=== PATIENT | female | born 1995 | race Caucasian/White ===

== ENCOUNTER 2019-03-12 08:40 | Emergency (ER) | payer SELFPAY ==
[~2019-03-12] VITALS: Ht 177.8 cm; Wt 96.4 kg
[2019-03-12 08:41] VITALS: BP 117/73
[2019-03-12] MEDS ORDERED: PRED20TA PO (09:02)
== END 2019-03-12 09:30 | disposition home or self-care (01) ==
LOC: M ED 08:40
DX: D18.09 Hemangioma of other sites (principal); F17.210 Nicotine dependence, cigarettes, uncomplicated

== ENCOUNTER 2019-04-26 15:17 | Emergency (ER) | payer MEDICAID, SELFPAY ==
[~2019-04-26] VITALS: Ht 177.8 cm; Wt 100.0 kg
[~2019-04-26 15:17] MED LIST: PRED20TA PO
[2019-04-26] MEDS ORDERED: FLUORESCEIN OPHTH 1 MG STRIP OU ONE (17:00)
[2019-04-26] MEDS ORDERED: TETRACAINE 0.5% OPHTH SOLN 4ML OU ONE (17:00)
[2019-04-26] MEDS ORDERED: PRED10TA2 PO (17:43)
[2019-04-26] MEDS ORDERED: predniSONE 20 MG TAB PO ONE (17:45)
[2019-04-26] MEDS ORDERED: PERC5TAB12 PO (17:56)
[2019-04-26 17:58] VITALS: BP 131/69
== END 2019-04-26 17:59 | disposition home or self-care (01) ==
LOC: M ED 15:17
DX: H57.12 Ocular pain, left eye (principal); D18.1 Lymphangioma, any site; F17.200 Nicotine dependence, unspecified, uncomplicated; Z86.69 Personal history of other diseases of the nervous system and sense organs

== ENCOUNTER 2019-05-05 12:41 | Emergency (ER) | payer MEDICAID, SELFPAY ==
[~2019-05-05] VITALS: Ht 177.8 cm; Wt 98.8 kg
[2019-05-05 12:41] VITALS: BP 140/86
[~2019-05-05 12:41] MED LIST changes: +PERC5TAB12 PO; +PRED10TA2 PO
[2019-05-05] MEDS ORDERED: IPRATROPIUM 0.5MG/ALBUTEROL 2.5MG INH SOL UD 3ML (DUONEB)(J7620) NEB ONE (13:15)
--- NOTE | 2019-05-05 13:39 | REP ---
Clinical: Productive cough . Comparison: None . Technique: PA and lateral. Findings: The mediastinum and cardiac silhouette are normal. The lung griffin are clear and without acute consolidation, effusion, or pneumothorax. The skeletal structures are intact and normal. Impression: 1. No acute cardiopulmonary process. Electronically Signed by Israel Ha MD 05/05/2019 01:30 P
[2019-05-05] MEDS ORDERED: MUCI600T31 PO (14:12)
[2019-05-05] MEDS ORDERED: AUGM875T28 PO (14:12)
[2019-05-05] MEDS ORDERED: PROAAER10 INH (14:12)
[2019-05-05] MEDS ORDERED: PRED20TA PO (14:12)
[2019-05-05] MEDS ORDERED: AUGMENTIN 875 MG TAB PO ONE (14:15)
== END 2019-05-05 14:18 | disposition home or self-care (01) ==
LOC: M ED 12:41
DX: J01.90 Acute sinusitis, unspecified (principal); J20.9 Acute bronchitis, unspecified

== ENCOUNTER 2019-05-16 13:04 | Emergency (ER) | payer MEDICAID ==
[~2019-05-16] VITALS: Ht 177.8 cm; Wt 103.2 kg
[~2019-05-16 13:04] MED LIST changes: +AUGM875T28 PO; +MUCI600T31 PO; +PROAAER10 INH
[2019-05-16] MEDS ORDERED: IBUPROFEN 800 MG TAB PO ONE (14:15)
[2019-05-16] MEDS ORDERED: ZITHTAB PO (14:44)
[2019-05-16] MEDS ORDERED: AZITHROMYCIN 250 MG TAB PO ONE (14:45)
[2019-05-16 14:48] VITALS: BP 130/73
[2019-05-16 15:09] LABS: INFLUENZA A AMPLIFICATION NEGATIVE (NEGATIVE); INFLUENZA B AMPLIFICATION NEGATIVE (NEGATIVE)
== END 2019-05-16 14:58 | disposition home or self-care (01) ==
LOC: M ED 13:04
DX: J01.90 Acute sinusitis, unspecified (principal); J20.9 Acute bronchitis, unspecified; F17.200 Nicotine dependence, unspecified, uncomplicated; Z79.899 Other long term (current) drug therapy

== ENCOUNTER 2019-05-22 12:48 | Emergency (ER) | payer MEDICAID ==
[~2019-05-22] VITALS: Ht 177.8 cm; Wt 102.0 kg
[~2019-05-22 12:48] MED LIST changes: +ZITHTAB PO
--- NOTE | 2019-05-22 13:42 | REP ---
CT brain: 05/22/2019. Indication: Headache. Comparison: None. Technique: Unenhanced axial CT images of the brain were obtained from skull base to vertex. Findings: There is no acute intracranial hemorrhage, acute cortical infarction, mass effect, hydrocephalus or significant fluid within the visualized paranasal sinuses/mastoid air cells. Impression: No acute intracranial process. Electronically Signed by Adolph Manzo DO 05/22/2019 01:32 P
[2019-05-22] MEDS ORDERED: ONDANSETRON 4 MG ORAL DISINTEGRATING TAB (Q0162 PER 1MG) PO ONE (14:45)
[2019-05-22] MEDS ORDERED: NS 1,000 ML IV ONE (16:15)
[2019-05-22 16:40] LABS: BASO % 0.3 % (0.0-1.0); EOS # 0.1 10^3/uL (0.0-0.5); EOS % 1.3 % (0.0-3.0); HEMATOCRIT 40.1 % (36.0-47.0); HEMOGLOBIN 13.7 g/dl (12.0-15.5); LYMPH # 1.6 10^3/uL (1.5-5.0); LYMPH % 16.5 % (24.0-44.0); MEAN CORPUSCULAR HEMOGLOBIN 32.2 pg (27.0-33.0); MEAN CORPUSCULAR HGB CONC 34.2 g/dl (32.0-36.5); MEAN CORPUSCULAR VOLUME 94.1 fl (80.0-96.0); MONO # 0.6 10^3/uL (0.0-0.8); NEUTROPHILS # 7.2 10^3/uL (1.5-8.5); NEUTROPHILS % 75.5 % (36.0-66.0); PLATELET COUNT, AUTOMATED 249 10^3/uL (150-450); RED BLOOD COUNT 4.26 10^6/uL (4.00-5.40); WHITE BLOOD COUNT 9.5 10^3/uL (4.0-10.0)
[2019-05-22] MEDS ORDERED: diphenhydrAMINE INJ 50MG/ML VIAL (J1200) IV ONE (16:45)
[2019-05-22] MEDS ORDERED: KETOROLAC 30 MG/ML VIAL (J1885) IV ONE (16:45)
[2019-05-22] MEDS ORDERED: METOCLOPRAMIDE INJ 10MG/2ML VIAL (J2765) IV ONE (16:45)
[2019-05-22 16:54] LABS: BLOOD UREA NITROGEN 12 MG/DL (7-18); CARBON DIOXIDE LEVEL 28 MEQ/L (21-32); CHLORIDE LEVEL 107 MEQ/L (98-107); CREATININE FOR GFR 0.48 MG/DL (0.55-1.30); GLOMERULAR FILTRATION RATE > 60.0 (>60); GLUCOSE, FASTING 84 MG/DL (70-100); POTASSIUM SERUM 3.8 MEQ/L (3.5-5.1); SODIUM LEVEL 141 MEQ/L (136-145)
[2019-05-22] MEDS ORDERED: PROHANCE 279.3MG/ML 5ML VIAL (A9576) As Ordered ONE (18:21)
[2019-05-22] MEDS ORDERED: PROHANCE 279.3MG/ML 15ML VIAL (A9576) As Ordered ONE (18:22)
[2019-05-22 21:11] VITALS: BP 119/63
--- NOTE | 2019-05-25 09:37 | REP ---
MRI brain and orbits: 05/22/2019. Indication: Headache. Comparison: None. Technique: Multiplanar short and long TR sequences of the brain and orbits were obtained including post-gadolinium imaging. 19 ml IV ProHance were administered. Findings: Image quality is degraded by patient motion. Serpiginous mass within the left orbit is noted without proptosis. The ocular structures are intact. The cerebellar tonsils extend 4 mm below the basion-opisthion line. There is no restricted diffusion detected. There are a few small nonspecific foci of elevated T2 signal throughout the cerebral hemisphere white matter bilaterally. The large intracranial flow voids are unremarkable. Bilateral mastoid effusions are present. Impression: Intraconal left intraorbital mass with considerations including lymphangioma, hemangioma and additional less likely etiologies. Borderline Chiari one malformation. Multiple nonspecific foci of elevated T2 white matter signal with considerations including earlier than expected sequelae of chronic microangiopathic ischemic disease, a demyelinating process, Lyme's disease and additional less likely etiologies. Electronically Signed by Adolph Manzo DO 05/25/2019 09:29 A
== END 2019-05-22 21:18 | disposition home or self-care (01) ==
LOC: M ED 12:48
DX: D18.1 Lymphangioma, any site (principal); G43.B0 Ophthalmoplegic migraine, not intractable; H05.20 Unspecified exophthalmos; F17.290 Nicotine dependence, other tobacco product, uncomplicated
CPT/HCPCS: 70450; 70543; 70553; 80048; 84702; 85025; 96361; 96374; 96375; 99284; A9576; J1200; J2765; Q0162

== ENCOUNTER 2019-10-16 16:15 | Inpatient (IN) | payer MEDICAID, SELFPAY ==
[~2019-10-16] VITALS: Ht 177.8 cm; Wt 96.5 kg
[2019-10-16 17:43] LABS: HEMATOCRIT 38.5 % (36.0-47.0); HEMOGLOBIN 13.3 g/dl (12.0-15.5); MEAN CORPUSCULAR HEMOGLOBIN 32.8 pg (27.0-33.0); MEAN CORPUSCULAR HGB CONC 34.5 g/dl (32.0-36.5); MEAN CORPUSCULAR VOLUME 94.8 fl (80.0-96.0); PLATELET COUNT, AUTOMATED 177 10^3/uL (150-450); RED BLOOD COUNT 4.06 10^6/uL (4.00-5.40); WHITE BLOOD COUNT 5.6 10^3/uL (4.0-10.0)
[2019-10-16 17:45] LABS: AMPHETAMINES LEVEL URINE POSITIVE (NEGATIVE); BARBITURATES URINE NEGATIVE (NEGATIVE); BENZODIAZEPINES URINE NEGATIVE (NEGATIVE); CANNABINOIDS URINE POSITIVE (NEGATIVE); COCAINE METABOLITE URINE NEGATIVE (NEGATIVE); METHADONE URINE NEGATIVE (NEGATIVE); OPIATES URINE NEGATIVE (NEGATIVE); PHENCYCLIDINE URINE NEGATIVE (NEGATIVE)
[2019-10-16 17:47] LABS: ACETAMINOPHEN LEVEL < 2.0 UG/ML (10.0-30.0); ALBUMIN 3.4 GM/DL (3.2-5.2); ALT/SGPT 18 U/L (12-78); BILIRUBIN,DIRECT 0.2 MG/DL (0.0-0.2); BILIRUBIN,TOTAL 0.3 MG/DL (0.2-1.0); BLOOD UREA NITROGEN 7 MG/DL (7-18); CALCIUM LEVEL 8.4 MG/DL (8.5-10.1); CARBON DIOXIDE LEVEL 29 MEQ/L (21-32); CHLORIDE LEVEL 110 MEQ/L (98-107); CREATININE FOR GFR 0.52 MG/DL (0.55-1.30); ETHYL ALCOHOL (ETHANOL) 0.003 % (0.000-0.010); GLOMERULAR FILTRATION RATE > 60.0 (>60); GLUCOSE, FASTING 97 MG/DL (70-100); POTASSIUM SERUM 3.6 MEQ/L (3.5-5.1); SALICYLATE LEVEL 2.8 MG/DL (5.0-30.0); SODIUM LEVEL 143 MEQ/L (136-145); THYROID STIMULATING HORMONE 0.083 uIU/ML (0.358-3.740); TOTAL PROTEIN 6.4 GM/DL (6.4-8.2)
[2019-10-16] MEDS ORDERED: MAALOX 30 ML SUSP *UDC PO PRN (19:45)
[2019-10-16] MEDS ORDERED: traZODone 50 MG TAB PO PRN (19:45)
[2019-10-16] MEDS ORDERED: MOM 30ML SUSPENSION UDC PO PRN (19:45)
[2019-10-16] MEDS ORDERED: ACETAMINOPHEN TAB 650MG DOSE (2X325MG) PO PRN (19:45)
[2019-10-16 22:54] VITALS: BP 141/86
[2019-10-17 06:56] VITALS: BP 122/64
[2019-10-17] MEDS: NICOTINE 21MG/24HR 1 EA TRANSDERMAL TD SCH (09:06)
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
--- NOTE | 2019-10-17 13:28 | HPEPDOC ---
[facility] Medical History & Physical Date of Admission Oct 16, 2019 Date of Service: Oct 17, 2019 Attending Physician: Randi Nieto MD History and Physical CHIEF COMPLAINT: Suicidal thoughts HISTORY OF PRESENT ILLNESS: The patient is a 24-year-old female with past medical history of anxiety, depre ssion, PTSD who presented to [facility] emergency room with suicidal ideation and threats to harm herself. The patient stated that she was having anxiety attacks and thinking of committing suicide by jumping in front of a car. The patient has had a relationship change recently. She is from [place]. She is not currently on any medications to treat her symptoms she admits to having depressed mood, caballero icidal thoughts, poor sleep, poor impulse control, appetite decreased. She denies homicidal ideation auditory and visual hallucinations. She stated to have a plan for suicide by cutting herself and admits to having had a history of cutting. She uses marijuana daily and stated that before coming into the ER she had recently smoked with someone she didn't know which could explain why amphetamines are present in the urine. She states that over the past several days she's had increased numbness of her upper extremities only, no lower extremity numbness or tingling. She denies burning in her upper extremities, visual changes, sensory loss, increased pain, recent illnesses or other neurological deficits. The patient was ultimately admitted to inpatient mental health for unspecified depression. Medicine was consulted to assess. REVIEW OF SYSTEMS: Negative except for what is mentioned above. PAST MEDICAL HISTORY: 1. Anxiety 2. Depression 3. PTSD 4. Marijuana use 5. Tobacco use PAST SURGICAL HISTORY: 1. 2 FAMILY HISTORY: Mother: High blood pressure, alive The patient is adopted so does not know much of her family history SOCIAL HISTORY: The patient admits to smoking 1 pack per day for the past 3 years. She socially smokes marijuana. She denies smoking amphetamines and states that it ended up in her urine because she was smoking with someone new and didn't know if it was laced. She follows with [facility] family practice. She has no behavioral health provider. She lives with a friend locally. ALLERGIES: Please see below. CURRENT MEDICATIONS: Please see below. PHYSICAL EXAMINATION: CONSTITUTIONAL: No acute distress, resting comfortably sitting up in bed, AAO x 3 EYES: PERRLA, EOM intact HENT, MOUTH: Normocephalic, atraumatic, moist mucous membranes, NECK: SUPPLE, no JVD, no lymphadenopathy, no carotid bruit CV: Regular rate and rhythm, S1S2 normal, no murmurs/rubs/gallops RESPIRATORY: Clear to auscultation bilaterally, no rales/rhonchi/wheezes GI: Obese abdomen, BS positive in 4 quadrants, soft, nontender, nondistended, no rebound or guarding, no organomegaly : Deferred MUSCULOSKELETAL: Normal ROM. No cyanosis, clubbing, swelling, joint deformity, extremity edema INTEGUMENTARY: Multiple tattoos on the extremities, Intact, no rashes, no lesions, no erythema NEUROLOGIC: Cranial Nerves II-XII are intact, no focal deficits, known sensory or motor deficits in bilateral upper extremities. PSYCHIATRIC: Mood and affect are normal LABORATORY DATA: Please see below IMAGING: None ASSESSMENT: 24-year-old female admitted under inpatient mental health for further treatment of unspecified depression. PLAN: 1. Unspecified depression/anxiety. Plan as per mental health team. 2. PTSD. Plan per mental health team. 3. Bilateral upper extremity numbness. Unknown etiology at this time with preserved sensory and motor function in the upper extremity is. She denies burning. Would monitor closely to see if worsens. 4. Tobacco use. Recommend starting Nicotine patch daily. 5. Marijuana use. Recommend smoking cessation. 6. Positive UDS with amphetamines. The patient denies using amphetamines and states that she smoked marijuana recently with someone new and they must put it in the marijuana. She is currently showing no signs of withdrawal. DISPOSITION: At this time the patient has primarily behavioral health issues to be managed by the primary team. At this time I will sign off on the patient but if needed to see again, please do not hesitate in contacting our team. Vital Signs Vital Signs Date Time Temp Pulse Resp B/P (MAP) Pulse Ox O2 Delivery O2 Flow Rate FiO2 10/17/19 06:56 99.6 86 18 122/64 (83) 97 Room Air Laboratory Data Labs 24H Laboratory Tests 2 10/16/19 17:07: Nucleated Red Blood Cells % (auto) 0.0, Anion Gap 4L, Glomerular Filtration Rate > 60.0, Calcium Level 8.4L, Total Bilirubin 0.3, Direct Bilirubin 0.2, Aspartate Amino Transf (AST/SGOT) 15, Alanine Aminotransferase (ALT/SGPT) 18, Alkaline Jonnathan sphatase 86, Total Protein 6.4, Albumin 3.4, Albumin/Globulin Ratio 1.13, Thyroid Stimulating Hormone (TSH) 0.083L, Salicylates Level 2.8L, Urine Opiates Screen NEGATIVE, Urine Methadone Screen NEGATIVE, Acetaminophen Level < 2.0L, Urine Barbiturates Screen NEGATIVE, Urine Phencyclidine Screen NEGATIVE, Urine Amphetamines Screen POSITIVEH, Urine Benzodiazepines Screen NEGATIVE, Urine Cocaine Metabolite Screen NEGATIVE, Urine Cannabinoids Screen POSITIVEH, Ethyl Alcohol Level 0.003 CBC/BMP Laboratory Tests 10/16/19 17:07 Home Medications No Active Prescriptions or Reported Meds Allergies Coded Allergies: No Known Allergies (Unverified , 03/12/19) A-FIB/CHADSVASC A-FIB History Current/History of A-Fib/PAF?: No Current PO Anticoag Therapy: No Age/Risk Factor Scoring CHADSVASC: CHADSVASC Response (Comments) Value Age Risk Factor Age < 65 years old 0 Gender Risk Factor Female 1 Hx of CHF No 0 Hx of HTN No 0 Hx of Stroke/TIA/or VTE No 0 Hx of Diabetes No 0 Hx of Vascular Disease No 0 Total 1 Treatment Treatment ordered: NONE (early ambulation encouraged) Randi Nieto MD Oct 17, 2019 13:28
[2019-10-17 16:07] VITALS: BP 125/84
[2019-10-18 06:12] VITALS: BP 130/75
[2019-10-18] MEDS: NICOTINE 21MG/24HR 1 EA TRANSDERMAL TD SCH (08:44)
--- NOTE | 2019-10-18 10:52 | MHDSPDOC ---
[facility] Discharge Summary Discharge Summary DATE OF ADMISSION: Oct 16, 2019 at 19:34 DATE OF DISCHARGE: 10/18/19 Discharge Cynthia Toure MRN: N/A Date of : N/A Date of Service: 10/18/2019 Diagnoses Adjustment disorder with disruption of mood and conduct. Cannabis use disorder, mild. Tobacco use disorder, mild. History of Present Illness The patient, a 24-year-old woman with a history of depression, presents after reportedly breaking up with a significant other, she reports she moved up to this area in order to live with them and that she has several children who are with friends at this time. She reported that she had a moment and was really upset about that but has since felt better. She tested positive for metha mphetamine on admission but reports that she doesn't use methamphetamine other than using some cannabis, she is unclear how that got to her urine. The patient reports that she is feeling better after being able to be separate from the situation and reports that she would wish to go home, she reports her tearfulness has gone away. She was admitted on a voluntary status. Consultants Involved Hospitalist/PCP screening Treatment and Progress On The Unit The patient was admitted to the inpatient mental health unit and subsequently observed, she reported that she had a breakup, but that her mood and feelings of suicidality rapidly vanished when she arrived to our unit. She reported that she was feeling much improved with supportive treatment, she did well on the unit denying suicidal and homicidal ideation through her 48 hours period of observation. She attended groups, had no concerning behavior and generally was amenable to staff interventions. She was not started on any new medications as she primarily attributed her problems to her stressor relation breakup. Discharge Assessment 24-year-old woman with likely history of adjustment reaction to current loss of relationship presents after breakup with her boyfriend. She stabilizes well with only supportive treatments suggesting adjustment, she quickly asked to be discharged given that she was on a voluntary status when she had arrived. She is observed for 48 hours and subsequently discharged. The patient at the time of discharge did not meet criteria for involuntary admission/extension due to having a normal mental status exam, fair insight into the situation, They are engaged in the discharge process, as well as being friendly and amenable in behavioral control and havent been engaging in any observed concerning behavior or ideation recently. They decline voluntary extension/admission at this time and must be discharged in good aldair, as Im unable to make a case for holding the patient against their will. They may have historical risk factors of admissions and other interactions with psychiatry however, those are not modifiable from a clinical perspective. The patient will need to be discharged in good aldair. Mental Status Examination General: Well dressed with good hygiene Speech: Spontaneous and fluid Thought processes: Linear and logical MSK: Smooth and coordinated gait, no signs of tremors or involuntary orofacial movements Thought content: Future orientated Abstract reasoning, and computation: Intact Description of associations: Intact Description of abnormal or psychotic thoughts: Denies any suicidal or homicidal ideation. Denies any auditory or visual hallucinations. Does not appear to be responding to internal stimuli. Does not appear to be endorsing any bizarre or paranoid ideation. Judgment: fair Insight: fair Orientation: Alert and orientated 3 Cognition: Grossly normal Recent and remote memory: Intact Attention span and concentration: Intact Fund of knowledge: Adequate Mood: "okay" Affect: Euthymic with a full range Follow Up The social work team worked during the predischarge meeting in order to evaluate for further issues of lethality address them fully before discharge. They worked on safety planning with the patient's family members in order to ensure that the patient will have a safe and effective discharge. Time Spent The amount of time spent in the coordination of care for this patient was approximately 45 minutes. Saturday Vital Signs/I&Os Vital Signs Date Time Temp Pulse Resp B/P (MAP) Pulse Ox O2 Delivery O2 Flow Rate FiO2 10/18/19 06:12 98.0 77 16 130/75 (93) 99 Room Air Medications Scheduled Nicotine (Nicotine Patch) 21 Mg Patch.td24, 1 PATCH TD DAILY for TOBACCO for 30 Days, #30 Allergies Coded Allergies: No Known Allergies (Unverified , 03/12/19) BENITO GARNICA DO Oct 18, 2019 10:52
[2019-10-18] MEDS ORDERED: NICO21PAT TD (11:19)
== END 2019-10-18 12:10 | disposition home or self-care (01) | DRG 755 ==
LOC: M ED 16:15 → M ED INP 19:34 → M PSY 22:50
PROVIDERS: ADMIT Psychiatry & Neurology Addiction Medicine; ATTEND Psychiatry & Neurology Addiction Medicine
DX: F43.25 Adjustment disorder with mixed disturbance of emotions and conduct (principal); F32.9 Major depressive disorder, single episode, unspecified; F12.10 Cannabis abuse, uncomplicated; F17.210 Nicotine dependence, cigarettes, uncomplicated; F41.9 Anxiety disorder, unspecified; F43.10 Post-traumatic stress disorder, unspecified; Z91.5 Personal history of self-harm; R20.0 Anesthesia of skin; Z63.5 Disruption of family by separation and divorce; Z81.8 Family history of other mental and behavioral disorders

== ENCOUNTER 2019-10-20 16:15 | Emergency (ER) | payer MEDICAID, SELFPAY ==
[~2019-10-20] VITALS: Ht 177.8 cm; Wt 99.4 kg
[~2019-10-20 16:15] MED LIST changes: +NICO21PAT TD
[2019-10-20 16:16] VITALS: BP 120/72
== END 2019-10-20 17:15 | disposition home or self-care (01) ==
LOC: M ED 16:15
DX: G56.03 Carpal tunnel syndrome, bilateral upper limbs (principal); D18.1 Lymphangioma, any site; F17.200 Nicotine dependence, unspecified, uncomplicated; Z79.899 Other long term (current) drug therapy

== ENCOUNTER 2020-03-17 04:39 | Emergency (ER) | payer MEDICAID, OTHER ==
[~2020-03-17] VITALS: Ht 177.8 cm; Wt 91.4 kg
[2020-03-17 06:15] VITALS: BP 132/76
[2020-03-17] MEDS ORDERED: CLEO300C2 PO (06:35)
[2020-03-17] MEDS ORDERED: IBUP80TA PO (06:35)
[2020-03-17] MEDS ORDERED: IBUPROFEN 800 MG TAB PO ONE (06:45)
[2020-03-17] MEDS ORDERED: CLINDAMYCIN 150MG CAPSULE PO ONE (06:45)
== END 2020-03-17 06:57 | disposition home or self-care (01) ==
LOC: M ED 04:39
DX: K08.9 Disorder of teeth and supporting structures, unspecified (principal); F17.200 Nicotine dependence, unspecified, uncomplicated

== ENCOUNTER 2020-06-10 20:00 | Emergency (ER) | payer OTHER ==
[~2020-06-10] VITALS: Ht 177.8 cm; Wt 77.3 kg
[~2020-06-10 20:00] MED LIST changes: +CLEO300C2 PO; +IBUP80TA PO
[2020-06-10 21:00] LABS: HEMATOCRIT 36.1 % (36.0-47.0); HEMOGLOBIN 12.3 g/dl (12.0-15.5); MEAN CORPUSCULAR HEMOGLOBIN 30.9 pg (27.0-33.0); MEAN CORPUSCULAR HGB CONC 34.1 g/dl (32.0-36.5); MEAN CORPUSCULAR VOLUME 90.7 fl (80.0-96.0); PLATELET COUNT, AUTOMATED 244 10^3/uL (150-450); RED BLOOD COUNT 3.98 10^6/uL (4.00-5.40); WHITE BLOOD COUNT 11.5 10^3/uL (4.0-10.0)
[2020-06-10 21:27] LABS: AMPHETAMINES LEVEL URINE POSITIVE (NEGATIVE); BARBITURATES URINE NEGATIVE (NEGATIVE); BENZODIAZEPINES URINE NEGATIVE (NEGATIVE); CANNABINOIDS URINE POSITIVE (NEGATIVE); COCAINE METABOLITE URINE NEGATIVE (NEGATIVE); METHADONE URINE NEGATIVE (NEGATIVE); OPIATES URINE NEGATIVE (NEGATIVE); PHENCYCLIDINE URINE NEGATIVE (NEGATIVE)
[2020-06-10 21:38] LABS: ACETAMINOPHEN LEVEL < 2.0 UG/ML (10.0-30.0); ALBUMIN 3.8 GM/DL (3.2-5.2); ALT/SGPT 14 U/L (12-78); BILIRUBIN,DIRECT < 0.1 MG/DL (0.0-0.2); BILIRUBIN,TOTAL 0.6 MG/DL (0.2-1.0); BLOOD UREA NITROGEN 14 MG/DL (7-18); CALCIUM LEVEL 8.6 MG/DL (8.5-10.1); CARBON DIOXIDE LEVEL 25 MEQ/L (21-32); CHLORIDE LEVEL 106 MEQ/L (98-107); CREATININE FOR GFR 0.68 MG/DL (0.55-1.30); ETHYL ALCOHOL (ETHANOL) < 0.003 % (0.000-0.010); GLOMERULAR FILTRATION RATE > 60.0 (>60); GLUCOSE, FASTING 107 MG/DL (70-100); POTASSIUM SERUM 3.9 MEQ/L (3.5-5.1); SALICYLATE LEVEL < 1.7 MG/DL (5.0-30.0); SODIUM LEVEL 140 MEQ/L (136-145); THYROID STIMULATING HORMONE 0.574 uIU/ML (0.358-3.740); TOTAL PROTEIN 7.5 GM/DL (6.4-8.2)
[2020-06-11 05:15] VITALS: BP 120/58
--- NOTE | 2020-06-11 16:46 | ECGEPIP ---
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
== END 2020-06-11 05:18 ==
LOC: M ED 20:00
DX: R45.851 Suicidal ideations (principal); F32.9 Major depressive disorder, single episode, unspecified; F17.200 Nicotine dependence, unspecified, uncomplicated; F19.10 Other psychoactive substance abuse, uncomplicated; F12.10 Cannabis abuse, uncomplicated
CPT/HCPCS: 80048; 80076; 80307; 84443; 85027; 87631; 93005; 99284; G0480

== ENCOUNTER 2020-06-19 21:17 | Emergency (ER) | payer OTHER ==
[~2020-06-19] VITALS: Ht 177.8 cm; Wt 85.0 kg
[2020-06-19] MEDS ORDERED: TRAZ-252 PO (21:31)
[2020-06-19] MEDS ORDERED: ARIP1TAB PO (21:31)
[2020-06-19] MEDS ORDERED: ALBU8.5H INH (21:31)
[2020-06-19] MEDS ORDERED: CLON-412 PO (21:31)
[2020-06-19] MEDS ORDERED: HYDR50CA2 PO (21:31)
[2020-06-19] MEDS ORDERED: SERT50TA29 PO (21:31)
[2020-06-19] MEDS ORDERED: NS 1,000 ML IV ONE (22:15)
[2020-06-19 22:36] LABS: BASO % 0.3 % (0.0-1.0); EOS # 0.2 10^3/uL (0.0-0.5); EOS % 3.1 % (0.0-3.0); HEMATOCRIT 34.7 % (36.0-47.0); LYMPH # 2.3 10^3/uL (1.5-5.0); LYMPH % 34.6 % (24.0-44.0); MEAN CORPUSCULAR HEMOGLOBIN 29.8 pg (27.0-33.0); MEAN CORPUSCULAR HGB CONC 31.7 g/dl (32.0-36.5); MONO # 0.6 10^3/uL (0.0-0.8); MONO % 9.5 % (0.0-5.0); NEUTROPHILS # 3.5 10^3/uL (1.5-8.5); NEUTROPHILS % 52.4 % (36.0-66.0); PLATELET COUNT, AUTOMATED 228 10^3/uL (150-450); RED BLOOD COUNT 3.69 10^6/uL (4.00-5.40); WHITE BLOOD COUNT 6.7 10^3/uL (4.0-10.0)
[2020-06-19 23:04] LABS: BLOOD UREA NITROGEN 17 MG/DL (7-18); CALCIUM LEVEL 8.1 MG/DL (8.5-10.1); CARBON DIOXIDE LEVEL 29 MEQ/L (21-32); CHLORIDE LEVEL 109 MEQ/L (98-107); CK-MB VALUE MASS < 1.0 NG/ML (<3.6); CPK CREATINE PHOSPHOKINASE 41 U/L (26-192); CREATININE FOR GFR 0.58 MG/DL (0.55-1.30); GLOMERULAR FILTRATION RATE > 60.0 (>60); GLUCOSE, FASTING 97 MG/DL (70-100); MB/CK RELATIVE INDEX 2.44 (< OR =4); SODIUM LEVEL 143 MEQ/L (136-145); TROPONIN I < 0.02 NG/ML (< 0.10)
[2020-06-19 23:56] VITALS: BP 92/57
--- NOTE | 2020-06-20 05:38 | ECGEPIP ---
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
== END 2020-06-19 23:58 | disposition home or self-care (01) ==
LOC: M ED 21:17
DX: I95.1 Orthostatic hypotension (principal); F43.10 Post-traumatic stress disorder, unspecified; F41.9 Anxiety disorder, unspecified; F32.9 Major depressive disorder, single episode, unspecified; F17.200 Nicotine dependence, unspecified, uncomplicated

== ENCOUNTER 2020-07-04 08:06 | Emergency (ER) | payer OTHER ==
[~2020-07-04] VITALS: Ht 177.8 cm; Wt 170.0 kg
[~2020-07-04 08:06] MED LIST changes: +ALBU8.5H INH; +ARIP1TAB PO; +CLON-412 PO; +HYDR50CA2 PO; +SERT50TA29 PO; +TRAZ-252 PO
[2020-07-04 09:33] LABS: BASO % 0.2 % (0.0-1.0); EOS # 0.2 10^3/uL (0.0-0.5); EOS % 4.4 % (0.0-3.0); HEMATOCRIT 32.2 % (36.0-47.0); HEMOGLOBIN 10.4 g/dl (12.0-15.5); LYMPH # 1.4 10^3/uL (1.5-5.0); LYMPH % 28.5 % (24.0-44.0); MEAN CORPUSCULAR HEMOGLOBIN 30.4 pg (27.0-33.0); MEAN CORPUSCULAR HGB CONC 32.3 g/dl (32.0-36.5); MEAN CORPUSCULAR VOLUME 94.2 fl (80.0-96.0); MONO # 0.5 10^3/uL (0.0-0.8); MONO % 9.4 % (0.0-5.0); NEUTROPHILS # 2.9 10^3/uL (1.5-8.5); NEUTROPHILS % 57.3 % (36.0-66.0); PLATELET COUNT, AUTOMATED 192 10^3/uL (150-450); RED BLOOD COUNT 3.42 10^6/uL (4.00-5.40)
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
[2020-07-04] MEDS ORDERED: BACT800T5 PO (10:10)
[2020-07-04 10:33] VITALS: BP 113/60
== END 2020-07-04 11:35 | disposition home or self-care (01) ==
LOC: M ED 08:06
DX: S00.03XA Contusion of scalp, initial encounter (principal); Y08.89XA Assault by other specified means, initial encounter; Y92.9 Unspecified place or not applicable; Y93.9 Activity, unspecified; Y99.9 Unspecified external cause status; L03.114 Cellulitis of left upper limb; F19.10 Other psychoactive substance abuse, uncomplicated; F32.9 Major depressive disorder, single episode, unspecified

== ENCOUNTER 2020-08-07 16:11 | Emergency (ER) | payer MEDICAID, OTHER, SELFPAY ==
[~2020-08-07 16:11] MED LIST changes: +BACT800T5 PO
--- OUTSIDE RECORDS SUMMARY | 2020-08-07 16:15 | CCD ---
Author Author [facility] Organization [facility] Address Unknown Phone Unavailable Care Team Providers Care Recreation Clerk Name Role Phone Jeri Epperson Unavailable Micheal Wong MD Unavailable Unavailable Jv Vale CAR USHER Unavailable AkankshaJv neff CAR USHER Unavailable Jv Vale CAR USHER Unavailable Jenifer Loyd NP Unavailable Unavailable Barak Devine MD Unavailable Unavailable Re-disclosure Warning The records that you are about to access may contain information from federally-assisted alcohol or drug abuse programs. If such information is present, then the following federally mandated warning applies: This information has been disclosed to you from records protected by federal confidentiality rules (42 CFR part 2). The federal rules prohibit you from making any further disclosure of this information unless further disclosure is expressly permitted by the written consent of the person to whom it pertains or as otherwise permitted by 42 CFR part 2. A general authorization for the release of medical or other information is NOT sufficient for this purpose. The Federal rules restrict any use of the information to criminally investigate or prosecute any alcohol or drug abuse patient.The records that you are about to access may contain highly sensitive health information, the redisclosure of which is protected by Article 27-F of the [facility] Public Health law. If you continue you may have access to information: Regarding HIV / AIDS; Provided by facilities licensed or operated by the [facility] Office of Mental Health; or Provided by the [facility] Office for People With Developmental Disabilities. If such information is present, then the following [facility] mandated warning applies: This information has been disclosed to you from confidential records which are protected by state law. State law prohibits you from making any further disclosure of this information without the specific written consent of the person to whom it pertains, or as otherwise permitted by law. Any unauthorized further disclosure in violation of state law may result in a fine or usp sentence or both. A general authorization for the release of medical or other information is NOT sufficient authorization for further disc losure. Allergies and Adverse Reactions Type Description Substance Reaction Status Data Source(s ) Drug allergy No Known Allergies No Known Allergies [facility] Encounters Encounter Providers Location Date Indications Data Source(s ) Extended Individual Psychotherapy - 45 min Attender: Melissa Epperson [facility] 06/22/2020 10:00:00 AM EST - 06/22/2020 10:00:00 AM EST [facility] ([facility]) Attender: Jeri Epperson 06/22/2020 12:00:00 AM EST [facility] ([facility]) Unlisted evaluation and management service 06/07 07:19:00 PM EST [facility] ([facility]) Inpatient Attender: Barak Devine MDAdmitter: Barak Devine MD 06/11/2020 06:45:00 AM EST - 06/16/2020 01:00:00 PM EST Suicidal Ideations [facility] Suicidal Ideations Patient discharged. Outpatient Attender: Jenifer Alexis PAdmitter: Barak Devine MDConsultant: Barak Devine MD 06/11/2020 06:45:00 AM EST Suicidal Ide[facility] Suicidal Ideations Outpatient Attender: Jenifer Alexis PAdmitter: Barak Devine MDConsultant: Barak Devine MD 06/11/2020 06:45:00 AM EST Su[facility] Ide[facility] Suicidal Ideations Outpatient Attender: Jenifer Alexis PAdmitter: Barak Devine MDConsultant: Barak Devine MD 06/11/2020 06:45:00 AM EST Su[facility] Ide[facility] Suicidal Ideations Outpatient Attender: Jenifer Alexis PAdmitter: Barak LOJAonsultant: Barak Devine MD 06/11/2020 06:45:00 AM EST Suicidal Ideations [facility] Suicidal Ideations Outpatient Attender: Jv Tom mitter: Barak Devine MDConsultant: Barak Devine MD 06/11/2020 06:45:00 AM EST Suicidal Ideations [facility] Suicidal Ideations Outpatient Attender: Micheal Wong MD Admitter: Barak Devine MDConsultant: Barak Devine MD 06/11/2020 06:45:00 AM EST Suicidal Ideations [facility] Suicidal Ideations Outpatient Attender: Micheal Wong MD Admitter: Barak Devine MDConsultant: Barak Devine MD 06/11/2020 06:45:00 AM EST Suicidal Ideations [facility] Suicidal Ideations Medications Medication Brand Name Start Date Product Form Dose Route Admi nistrative Instructions Pharmacy Instructions Status Indications Reaction Description Data Source(s) Sulfamethoxazole 800 MG / Trimethoprim 160 MG Oral Tab let 800-160 mg SULFAMETHOXAZOLE/TRIMETHOPRIM 07/04/2020 12:00:00 AM EST tablet 20 TAKE ONE TABLET BY MOUTH EVERY 12 HOURS TAKE ONE TABLET BY MOUTH EVERY 12 HOURS SOLD: 07/04/2020 [facility] 10 mg 06/16/2020 12:00:00 AM EST tablet 30 TAKE ONE TABLET BY MOUTH EVERY DAY AT BEDTIME TAKE ONE TABLET BY MOUTH EVERY DAY AT BEDTIME SOLD: 06/16/2020 [facility] 4 mg 06/16/2020 12:00:00 AM EST lozenge 72 TAKE 1 LOZENGE EVERY 4 HOURS NEEDED FOR NICOTINE CRAVINGS TAKE 1 LOZENGE EVERY 4 HOURS NEEDED F OR NICOTINE CRAVINGS SOLD: 06/16/2020 [facility] 90 mcg/actuation 06/16/2020 12:00:00 AM EST HFA aerosol inha ler 18 INHALE TWO PUFFS BY MOUTH EVERY 6 HOURS FOR SHORNTNESS OF BREATH OR WHEEZING INHALE TWO PUFFS BY MOUTH EVERY 6 HOURS FOR SHORNTNESS OF BREATH OR WHEEZING SOLD: 06/16/2020 [facility] Clonidine Hydrochloride 0.1 MG Oral Tablet CLONIDINE HCL 06/16/2020 12:00:00 AM EST tablet 15 TAKE ONE-HALF TABLET BY MOUT H TWICE A DAY TAKE ONE-HALF TABLET BY MOUTH TWICE A DAY SOLD: 06/16/2020 [facility] 50 mg 06/16/2020 12:00:00 AM EST capsule 90 TAKE ONE CAPSULE BY MOUTH THREE TIMES A DAY NEEDED FOR ANXIETY TAKE ONE CAPSULE BY MOUTH THREE TIMES A DAY NEEDED FOR ANXIETY SOLD: 06/16/2020 [facility] 50 mg 06/16/2020 12:00:00 AM EST tablet 30 TAKE ONE TABLET BY MOUTH EVERY DAY AT BEDTIME TAKE ONE TABLET BY MOUTH EVERY DAY AT BEDTIME SOLD: 06/16/2020 [facility] 50 mg 06/16/2020 12:00:00 AM EST tablet 30 TAKE ONE TABLET BY MOUTH EVERY DAY TAKE ONE TABLET BY MOUTH EVERY DAY SOLD: 06/16/2020 [facility] 800 mg 03/17/2020 12:00:00 AM EDT tablet 30 TAKE ONE TABLET BY MOUTH EVERY 6 HOURS NEEDED FOR PAIN TAKE ONE TABLET BY MOUTH EVERY 6 HOURS A S NEEDED FOR PAIN SOLD: 03/17/2020 [facility] 300 mg 03/17/2020 12:00:00 AM EDT capsule 30 TAKE ONE CAPSULE BY MOUTH THREE TIMES A DAY TAKE ONE CAPSULE BY MOUTH THREE TIMES A DAY SOLD: 03/17/2020 [facility] Insurance Providers Payer name Policy type / Coverage type Policy ID Covered alliance party ID Covered alliance party's relationship to [place] Policy [place] Plan Information MABLE [id number] SP [id number] EMEDNY [id number] SP [id number] SELF PAY ONLY [id number] SP [id number] MABLE CARE [place] O [id number] S [id number] SELF PAY MABLE [id number] SP [id number] MEDICAID [id number] SP [id number] SELF PAY ONLY [id number] SP [id number] Problems, Conditions, and Diagnoses Code Display Name Description Problem Type Effective Dates Data Source(s) R45.851 Suicidal ideations R45.851 - Suicidal ideations Diagno sis 06/11/2020 06:45:00 AM [place] R06.2 Wheezing R06.2 - Wheezing Diagnosis 06/11/2020 06:45:[address] [facility] [place] Z13.9 Encounter for screening, unspecified Z13 .9 - Encounter for screening, unspecified Diagnosis 06/11/2020 06:45:[address] [facility] [place] F12.20 Cannabis dependence, uncomplicated F12.2 0 - Cannabis dependence, uncomplicated Diagnosis 06/11/2020 06:45:00 AM EST [place] F15.20 Other stimulant dependence, uncomplicate d F15.20 - Other stimulant dependence, uncomplicated Diagnosis 06/11/2020 06:45:00 AM EST [place] F60.3 Borderline personality disorder F60.3 - Borderli ne personality disorder Diagnosis 06/11/2020 06:45:00 AM EST [facility] F43.10 Post-traumatic stress disorder, unspecif ied F43.10 - Post-traumatic stress disorder, unspecified Diagnosis 06/11/2020 06:45:00 AM EST [facility] F32.9 Major depressive disorder, single episod e, unspecified F32.9 - Major depressive disorder, single episode, unspecified Diagnosis 06/11 06:45:00 AM EST [place] F33.2 Major depressive disorder, recurrent sev ere without psychotic features F33.2 - Major depressive disorder, recurrent severe without psychotic features Diagnosis 06/11/2020 06:45:00 AM EST [place] Surgeries/Procedures Procedure Description Date Indications Data Source(s) Extended Individual Psychotherapy - 45 min 06/22/2020 12:00:00 AM EST - 06/22/2020 12:00:00 AM EST [facility] ([facility]) Extended Individual Psychotherapy - 45 min 0 12:00:00 AM EST [facility] ([facility]) Results ID Date Data Source [id number] 07/14/2020 09:33:00 AM EST [facility] Name Value Range Interpretation Code Description Data Maggie rce(s) Supporting Document(s) SARS coronavirus 2 RdRp gene [Presence] in Respiratory specimen by NOHEMY with probe detection Not detected [facility] This lab was ordered by [facility] and reported by [facility]. ID Date Data Source [id number] 06/10/2020 09:55:00 PM EST [facility] Name Value Range Interpretation Code Description Data Maggie rce(s) Supporting Document(s) SARS coronavirus 2 RNA [Presence] in Res piratory specimen by NOHEMY with probe detection [facility] This lab was ordered by [facility] a nd reported by [facility]. Procedure Social History Code Duration Value Status Description Data Source(s ) Smoking 06/22/2020 12:00:00 AM EST Unknown if ever smoked comp leted Unknown if ever smoked [facility] ([facility]) Smoking 06/16/2020 12:00:00 PM EST Tobacco smoki ng consumption unknown (finding) completed Unknown If Ever Smoked [facility] ([facility])
[2020-08-07] MEDS ORDERED: NS 1,000 ML IV ONE ×2 (16:45→18:15)
[2020-08-07 17:38] LABS: BASO % 0.4 % (0.0-1.0); EOS # 0.2 10^3/uL (0.0-0.5); EOS % 1.7 % (0.0-3.0); HEMATOCRIT 38.3 % (36.0-47.0); HEMOGLOBIN 12.7 g/dl (12.0-15.5); LYMPH # 1.6 10^3/uL (1.5-5.0); LYMPH % 14.3 % (24.0-44.0); MEAN CORPUSCULAR HEMOGLOBIN 29.9 pg (27.0-33.0); MEAN CORPUSCULAR HGB CONC 33.2 g/dl (32.0-36.5); MEAN CORPUSCULAR VOLUME 90.1 fl (80.0-96.0); MONO # 0.9 10^3/uL (0.0-0.8); MONO % 8.1 % (0.0-5.0); NEUTROPHILS # 8.3 10^3/uL (1.5-8.5); PLATELET COUNT, AUTOMATED 221 10^3/uL (150-450); RED BLOOD COUNT 4.25 10^6/uL (4.00-5.40)
[2020-08-07 17:59] LABS: ALBUMIN 3.4 GM/DL (3.2-5.2); ALT/SGPT 22 U/L (12-78); BILIRUBIN,DIRECT 0.1 MG/DL (0.0-0.2); BILIRUBIN,TOTAL 0.3 MG/DL (0.2-1.0); BLOOD UREA NITROGEN 12 MG/DL (7-18); CALCIUM LEVEL 9.1 MG/DL (8.5-10.1); CARBON DIOXIDE LEVEL 27 MEQ/L (21-32); CHLORIDE LEVEL 104 MEQ/L (98-107); CREATININE FOR GFR 0.57 MG/DL (0.55-1.30); GLOMERULAR FILTRATION RATE > 60.0 (>60); GLUCOSE, FASTING 87 MG/DL (70-100); LIPASE 43 U/L (73-393); POTASSIUM SERUM 3.9 MEQ/L (3.5-5.1); SODIUM LEVEL 141 MEQ/L (136-145); TOTAL PROTEIN 7.5 GM/DL (6.4-8.2)
--- OUTSIDE RECORDS SUMMARY | 2020-08-07 18:13 | CCD ---
Author Author [facility] Organization [facility] Address Unknown Phone Unavailable Care Team Providers Care Service Specialist Name Role Phone Jeri Epperson Unavailable Micheal Wong MD Unavailable Unavailable Jv Vale DRONE OPERATOR Unavailable AkankshaJv neff DRONE OPERATOR Unavailable Jv Vale DRONE OPERATOR Unavailable Jenifer Loyd NP Unavailable Unavailable Barak [...] is protected by Article 27-F of the [facility] Public Health law. If you continue you may have access to information: Regarding HIV / AIDS; Provided by facilities licensed or operated by the [facility] Office of Mental Health; or Provided by the [facility] Office for People With Developmental Disabilities. If such information is present, then the following [facility] mandated warning applies: This information has been [...] law may result in a fine or retirement sentence or both. A general authorization for the release of medical or other information is NOT sufficient authorization for further disc losure. Allergies and Adverse Reactions Type Description Substance Reaction Status Data Source(s ) Drug allergy No Known Allergies No Known Allergies [facility] Encounters Encounter Providers Location Date Indications Data Source(s ) Extended Individual Psychotherapy - 45 min Attender: Melissa Epperson [facility] 06/22/2020 10:00:00 AM EST - 06/22/2020 10:00:00 AM EST [facility] ([facility]) Attender: Jeri Epperson 06/22/2020 12:00:00 AM EST [facility] ([facility]) Unlisted evaluation and management service 06/07 07:19:00 PM EST [facility] ([facility]) Inpatient Attender: Barak Devine MDAdmitter: Barak Devine MD 06/11/2020 06:45:00 AM EST - 06/16/2020 01:00:00 PM EST Suicidal Ideations [facility] Suicidal Ideations Patient discharged. Outpatient Attender: [...] 06/11/2020 06:45:00 AM EST Suicidal Ideations [facility] Suicidal Ideations Outpatient Attender: Jv Tom mitter: Barak Devine MDConsultant: Barak Devine MD 06/11/2020 06:45:00 AM EST Suicidal Ideations [facility] Suicidal Ideations Outpatient Attender: Micheal Wong MD Admitter: Barak Devine MDConsultant: Barak Devine MD 06/11/2020 06:45:00 AM EST Suicidal Ideations [facility] Suicidal Ideations Outpatient Attender: Micheal Wong MD Admitter: Barak Devine MDConsultant: Barak Devine MD 06/11/2020 06:45:00 AM EST Suicidal Ideations [facility] Suicidal Ideations Medications Medication Brand Name Start [...] type / Coverage type Policy ID Covered green party ID Covered green party's relationship to dum[place] Policy [place] Plan Information MABLE [id number] SP [id number] EMED[place] [id number] SP [id number] SELF PAY ONLY [id number] SP [id number] [place] O [id number] S [id number] SELF PAY MABLE [id number] SP [id number] MEDICAID [id number] SP [id number] SELF PAY ONLY [id number] SP [id number] Problems, Conditions, and Diagnoses Code Display Name Description Problem Type Effective Dates Data Source(s) R45.851 Suicidal ideations R45.851 - Suicidal ideations Diagno sis 06/11/2020 06:45:00 AM [facility] R06.2 Wheezing R06.2 - Wheezing Diagnosis 06/11/2020 06:45:00 AM [facility] [place] Z13.9 Encounter for screening, unspecified Z13 .9 - Encounter for screening, unspecified Diagnosis 06/11/2020 06:45:00 AM [facility] [place] F12.20 Cannabis dependence, uncomplicated F12.2 0 - Cannabis dependence, uncomplicated Diagnosis 06/11/2020 06:45:00 AM EST [place] F15.20 Other stimulant dependence, uncomplicate d F15.20 - Other stimulant dependence, uncomplicated Diagnosis 06/11/2020 06:45:00 AM EST [place] F60.3 Borderline personality disorder F60.3 - Borderli ne personality disorder Diagnosis 06/11/2020 06:45:00 AM [facility] F43.10 Post-traumatic stress disorder, unspecif ied F43.10 - Post-traumatic stress disorder, unspecified Diagnosis 06/11/2020 06:45:00 AM EST [facility] F32.9 Major depressive disorder, single episod e, unspecified F32.9 - Major depressive disorder, single episode, unspecified Diagnosis 06/11 06:45:00 AM EST [place] F33.2 Major depressive disorder, recurrent sev ere without psychotic features F33.2 - Major depressive disorder, recurrent severe without psychotic features Diagnosis 06/11/2020 06:45:00 AM EST [place] Surgeries/Procedures Procedure Description Date Indications Data Source(s) Extended Individual Psychotherapy - 45 min 06/22/2020 12:00:00 AM EST - 06/22/2020 12:00:00 AM EST [facility] ([facility]) Extended Individual Psychotherapy - 45 min 0 12:00:00 AM EST [facility] ([facility]) Results ID Date Data Source [id number] 07/14/2020 09:33:00 AM EST [facility] Name Value Range Interpretation Code Description Data Maggie rce(s) Supporting Document(s) SARS coronavirus 2 RdRp gene [Presence] in Respiratory specimen by NOHEMY with probe detection Not detected [facility] This lab was ordered by [facility] and reported by [facility]. ID Date Data Source [id number] 06/10/2020 09:55:00 PM EST [facility] Name Value Range Interpretation Code Description Data Maggie rce(s) Supporting Document(s) SARS coronavirus 2 RNA [Presence] in Res piratory specimen by NOHEMY with probe detection [facility] This lab was ordered by [facility] a nd reported by [facility]. Procedure Social History Code Duration Value Status Description Data Source(s ) Smoking 06/22/2020 12:00:00 AM EST Unknown if ever smoked comp leted Unknown if ever smoked [facility] ([facility]) Smoking 06/16/2020 12:00:00 PM EST Tobacco smoki ng consumption unknown (finding) completed Unknown If Ever Smoked [facility] ([facility])
[2020-08-07] MEDS ORDERED: cefTRIAXone SOD 1 GM in D5W MINI-BAG PLUS 50 ML IV ONE (18:15)
[2020-08-07 18:16] LABS: HCG, SERUM QUALITATIVE NEGATIVE (NEGATIVE)
[2020-08-07] MEDS ORDERED: ISOVUE-370 76% 100ML VIAL As Ordered ONE (18:23)
[2020-08-07 18:29] LABS: ACETAMINOPHEN LEVEL < 2.0 UG/ML (10.0-30.0); ETHYL ALCOHOL (ETHANOL) < 0.003 % (0.000-0.010); SALICYLATE LEVEL < 1.7 MG/DL (5.0-30.0); THYROID STIMULATING HORMONE 0.124 uIU/ML (0.358-3.740)
[2020-08-07 18:32] LABS: AMPHETAMINES LEVEL URINE NEGATIVE (NEGATIVE); BARBITURATES URINE NEGATIVE (NEGATIVE); BENZODIAZEPINES URINE NEGATIVE (NEGATIVE); CANNABINOIDS URINE POSITIVE (NEGATIVE); COCAINE METABOLITE URINE NEGATIVE (NEGATIVE); METHADONE URINE NEGATIVE (NEGATIVE); OPIATES URINE NEGATIVE (NEGATIVE); PHENCYCLIDINE URINE NEGATIVE (NEGATIVE)
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
[2020-08-07 20:38] LABS: RSV AMPLIFICATION NEGATIVE (NEGATIVE)
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
--- NOTE | 2020-08-07 21:05 | ECGEPIP ---
[facility] - ED Test Date: 2020-08-07 Pat Name: NATALIE MOHAMUD Department: Room: - Gender: Female Customer Greeter: : 1995 Requested By: JEN Herrera PA-C Order Number: [id number] Reading MD: Karie Enrique Measurements Intervals [place] Rate: 67 P: 24 [place]: 157 QRS: 53 QRSD: 93 T: 43 QT: 372 QTc: 393 Interpretive Statements SINUS RHYTHM WITH SINUS ARRHYTHMIA decreased rate 06/19/20 Electronically Signed on 08-07-2020 21:05:09 EST by Karie Enrique
[2020-08-08 01:00] VITALS: BP 123/77
== END 2020-08-08 01:09 | disposition short-term general hospital (02) ==
LOC: M ED 16:11
DX: S40.012A Contusion of left shoulder, initial encounter (principal); R45.851 Suicidal ideations; N39.0 Urinary tract infection, site not specified; R10.9 Unspecified abdominal pain; X58.XXXA Exposure to other specified factors, initial encounter; Y92.9 Unspecified place or not applicable; Y93.9 Activity, unspecified; Y99.9 Unspecified external cause status; F17.200 Nicotine dependence, unspecified, uncomplicated; F19.10 Other psychoactive substance abuse, uncomplicated
CPT/HCPCS: 73000; 74177; 80048; 80076; 80307; 81001; 83690; 84443; 84703; 85025; 87086; 87631; 93005; 96361; 96374; 99285; G0480; J0696; Q9967

== ENCOUNTER 2020-08-27 12:21 | Emergency (ER) | payer MEDICAID, OTHER, SELFPAY ==
[~2020-08-27] VITALS: Ht 177.8 cm; Wt 84.5 kg
[2020-08-27] MEDS: VENLAFAXINE **XR** 75MG CAPSULE PO SCH (09:00)
[2020-08-27] MEDS ORDERED: EFFE75CA2 PO (12:26)
[2020-08-27 12:54] LABS: HEMATOCRIT 38.8 % (36.0-47.0); HEMOGLOBIN 12.5 g/dl (12.0-15.5); MEAN CORPUSCULAR HEMOGLOBIN 29.9 pg (27.0-33.0); MEAN CORPUSCULAR HGB CONC 32.2 g/dl (32.0-36.5); MEAN CORPUSCULAR VOLUME 92.8 fl (80.0-96.0); PLATELET COUNT, AUTOMATED 246 10^3/uL (150-450); RED BLOOD COUNT 4.18 10^6/uL (4.00-5.40); WHITE BLOOD COUNT 7.2 10^3/uL (4.0-10.0)
[2020-08-27 13:14] LABS: AMPHETAMINES LEVEL URINE NEGATIVE (NEGATIVE); BARBITURATES URINE NEGATIVE (NEGATIVE); BENZODIAZEPINES URINE NEGATIVE (NEGATIVE); CANNABINOIDS URINE POSITIVE (NEGATIVE); COCAINE METABOLITE URINE NEGATIVE (NEGATIVE); METHADONE URINE NEGATIVE (NEGATIVE); OPIATES URINE NEGATIVE (NEGATIVE); PHENCYCLIDINE URINE NEGATIVE (NEGATIVE)
[2020-08-27 13:16] LABS: HCG, SERUM QUALITATIVE NEGATIVE (NEGATIVE)
[2020-08-27 13:25] LABS: ACETAMINOPHEN LEVEL < 2.0 UG/ML (10.0-30.0); ALBUMIN 3.7 GM/DL (3.2-5.2); ALT/SGPT 23 U/L (12-78); BILIRUBIN,DIRECT < 0.1 MG/DL (0.0-0.2); BILIRUBIN,TOTAL 0.2 MG/DL (0.2-1.0); BLOOD UREA NITROGEN 11 MG/DL (7-18); CALCIUM LEVEL 8.8 MG/DL (8.5-10.1); CARBON DIOXIDE LEVEL 32 MEQ/L (21-32); CHLORIDE LEVEL 105 MEQ/L (98-107); CREATININE FOR GFR 0.56 MG/DL (0.55-1.30); ETHYL ALCOHOL (ETHANOL) < 0.003 % (0.000-0.010); GLOMERULAR FILTRATION RATE > 60.0 (>60); GLUCOSE, FASTING 88 MG/DL (70-100); POTASSIUM SERUM 4.4 MEQ/L (3.5-5.1); SALICYLATE LEVEL < 1.7 MG/DL (5.0-30.0); SODIUM LEVEL 141 MEQ/L (136-145); THYROID STIMULATING HORMONE 0.219 uIU/ML (0.358-3.740); TOTAL PROTEIN 7.5 GM/DL (6.4-8.2)
--- OUTSIDE RECORDS SUMMARY | 2020-08-27 13:56 | CCD ---
Author Author [facility] Organization [facility] Address Unknown Phone Unavailable Care Team Providers Care Surveillance Dual Rate Officer Name Role Phone Colon, Barak Unavailable Unavailable Colon, Barak Unavailable Unavailable Colon, Barak Unavailable Unavailable Colon, Barak Unavailable Unavailable Jeri Epperson Unavailable Micheal Wong MD Unavailable Unavailable AkankshaAngelicaet FAGOTING MACHINE OPERATOR Unavailable Akanksha Jv FAGOTING MACHINE OPERATOR Unavailable Akanksha, Jv FAGOTING MACHINE OPERATOR Unavailable Jenifer Loyd FAGOTING MACHINE OPERATOR Unavailable Unavailable Re-disclosure Warning The records that [...] is protected by Article 27-F of the [place] State Public Health law. If you continue you may have access to information: Regarding HIV / AIDS; Provided by facilities licensed or operated by the [facility] Office of Mental Health; or Provided by the [facility] Office for People With Developmental Disabilities. If such information is present, then the following [facility] mandated warning applies: This information has been [...] law may result in a fine or snf sentence or both. A general authorization for the release of medical or other information is NOT sufficient authorization for further disc losure. Allergies and Adverse Reactions Type Description Substance Reaction Status Data Source(s ) Drug allergy No Known Allergies No Known Allergies [facility] Encounters Encounter Providers Location Date Indications Data Source(s ) Extended Individual Psychotherapy - 45 min Attender: Melissa Epperson [facility] 06/22/2020 10:00:00 AM EST - 06/22/2020 10:00:00 AM EST [facility] ([facility]) Attender: Jeri Epperson 06/22/2020 12:00:00 AM EST [facility] ([facility]) Unlisted evaluation and management service 06/07 07:19:00 PM EST [facility] ([facility]) Inpatient Attender: Barak DevineAdmitter: Barak Devine 06/11/2020 06:45:00 AM EST - 06/16/2020 01:00:00 PM EST Suicidal Ideations [facility] Suicidal Ideations Patient discharged. Outpatient Attender: Jenifer Alexis PAdmitter: Barak ColonConsultant: Barak Devine 06/11/2020 06:45:00 AM EST Suicidal Ideations [facility] Suicidal Ideations Outpatient Attender: Jenifer Alexis PAdmitter: Barak ColonConsultant: Barak Colon 06/11/2020 06:45:00 AM EST Suicidal Ideations [facility] Su[facility] Ideations Outpatient Attender: Jenifer Alexis PAdmitter: Barak ColonConsultant: Barak Devine 06/11/2020 06:45:00 AM EST Suicidal Ideations [facility] Su[facility] Ideations Outpatient Attender: Jenifer Alexis PAdmitter: Barak ColonConsultant: Barak Colon 06/11/2020 06:45:00 AM EST [facility] Outpatient Attender: Jv Vale NPAdmitter: Barak ColonConsultant: Barak Colon 06/11/2020 06:45:00 AM EST Suicidal Ideations [facility] Outpatient Attender: Micheal Wong MD Admitter: Barak ColonConsultant: Barak Colon 06/11/2020 06:45:00 AM EST [facility] Outpatient Attender: Micheal Wong MD Admitter: Barak ColonConsultant: Barak Colon 06/11/2020 06:45:00 AM EST [facility] Medications Medication Brand Name Start Date Product Form Dose Route Admi nistrative Instructions Pharmacy Instructions Status Indications Reaction Description Data Source(s) 21 mg/24 hr 08/12/2020 12:00:00 AM EST patch 24 hour 28 APPLY ONE PATCH TO THE SKIN EVERY MORNING FOR 28 DAYS APPLY ONE PATCH TO THE SKIN EVERY MORNIN G FOR 28 DAYS SOLD: 08/13/2020 [facility] 0.4 mg/mL 08/12/2020 12:00:00 AM EST solution 1 FOR SUSPECTED OPIOID OVERDOSE SPRAY ONE SPRAY INTO ONE NOSTRIL AND CALL 911. REPEAT IN ALTERNATE NOSTRIL AFTER 2 TO 3 MINUTES IF LITTLE/ NO RESPONSE FOR SUSPECTED OPIOID OVERDOSE SPRAY ONE SPRAY INTO ONE NOSTRIL AND CALL 911. REPEAT IN ALTERNATE NOSTRIL AFTER 2 TO 3 MINUTES IF LITTLE/ NO RESPONSE SOLD: 08/13/2020 [facility] 75 mg 08/12/2020 12:00:00 AM EST capsule,extended releas e 24hr 30 TAKE ONE CAPSULE BY MOUTH EVERY DAY WITH BREAKFAST TAKE ONE CAPSULE BY MOUTH EVERY DAY WITH BREAKFAST SOLD: 08/13/2020 [facility] Sulfamethox[facility] 800 MG / Trimethoprim 160 MG Oral Tab let 800-160 mg SULFAMETHOXAZOLE/TRIMETHOPRIM 07/04/2020 12:00:00 AM EST tablet 20 TAKE ONE TABLET BY MOUTH EVERY 12 HOURS TAKE ONE TABLET BY MOUTH EVERY 12 HOURS SOLD: 07/04/2020 [facility] 10 mg 06/16/2020 12:00:00 AM EST tablet 30 TAKE ONE TABLET BY MOUTH EVERY DAY AT BEDTIME TAKE ONE TABLET BY MOUTH EVERY DAY AT BEDTIME SOLD: 06/16/2020 [facility] 90 mcg/actuation 06/16/2020 12:00:00 AM EST HFA aerosol inha ler 18 INHALE TWO PUFFS BY MOUTH EVERY 6 HOURS FOR SHORNTNESS OF BREATH OR WHEEZING INHALE TWO PUFFS BY MOUTH EVERY 6 HOURS FOR SHORNTNESS OF BREATH OR WHEEZING SOLD: 06/16/2020 [facility] 50 mg 06/16/2020 12:00:00 AM EST capsule 90 TAKE ONE CAPSULE BY MOUTH THREE TIMES A DAY NEEDED FOR ANXIETY TAKE ONE CAPSULE BY MOUTH THREE TIMES A DAY NEEDED FOR ANXIETY SOLD: 06/16/2020 [facility] 50 mg 06/16/2020 12:00:00 AM EST tablet 30 TAKE ONE TABLET BY MOUTH EVERY DAY AT BEDTIME TAKE ONE TABLET BY MOUTH EVERY DAY AT BEDTIME SOLD: 06/16/2020 [facility] 50 mg 06/16/2020 12:00:00 AM EST tablet 30 TAKE ONE TABLET BY MOUTH EVERY DAY TAKE ONE TABLET BY MOUTH EVERY DAY SOLD: 06/16/2020 [facility] 4 mg 06/16/2020 12:00:00 AM EST lozenge 72 TAKE 1 LOZENGE EVERY 4 HOURS NEEDED FOR NICOTINE CRAVINGS TAKE 1 LOZENGE EVERY 4 HOURS NEEDED F OR NICOTINE CRAVINGS SOLD: 06/16/2020 [facility] Clonidine Hydrochloride 0.1 MG Oral Tablet CLONIDINE HCL 06/16/2020 12:00:00 AM EST tablet 15 TAKE ONE-HALF TABLET BY MOUT H TWICE A DAY TAKE ONE-HALF TABLET BY MOUTH TWICE A DAY SOLD: 06/16/2020 [facility] 800 mg 03/17/2020 12:00:00 AM EDT [...] type / Coverage type Policy ID Covered constitution party ID Covered constitution party's relationship to dumont Policy [place] Plan Information MABLE [id number] SP [id number] ALINE [id number] SP [id number] SELF PAY ONLY [id number] MABLE [facility] O [id number] S [id number] SELF PAY MABLE [id number] SP [id number] MEDICAID [id number] SP [id number] SELF PAY ONLY [id number] SP [id number] Problems, Conditions, and Diagnoses Code Display Name Description Problem Type Effective Dates Data Source(s) R45.851 Suicidal ideations R45.851 - Suicidal ideations Diagno sis 06/11/2020 06:45:00 AM [facility] R06.2 Wheezing R06.2 - Wheezing Diagnosis 06/11/2020 06:45:00 AM [facility] Z13.9 Encounter for screening, unspecified Z13 .9 - Encounter for screening, unspecified Diagnosis 06/11/2020 06:45:00 AM [facility] F12.20 Cannabis dependence, uncomplicated F12.2 0 - Cannabis dependence, uncomplicated Diagnosis 06/11/2020 06:45:00 AM [facility] F15.20 Other stimulant dependence, uncomplicate d F15.20 - Other stimulant dependence, uncomplicated Diagnosis 06/11/2020 06:45:00 AM [facility] F60.3 Borderline personality disorder F60.3 - Borderli ne personality disorder Diagnosis 06/11/2020 06:45:00 AM [facility] F43.10 Post-traumatic stress disorder, unspecif ied F43.10 - Post-traumatic stress disorder, unspecified Diagnosis 06/11/2020 06:45:00 AM [email or web address] F32.9 Major depressive disorder, single episod e, unspecified F32.9 - Major depressive disorder, single episode, unspecified Diagnosis 06/11 06:45:00 AM [facility] F33.2 Major depressive disorder, recurrent sev ere without psychotic features F33.2 - Major depressive disorder, recurrent severe without psychotic features Diagnosis 06/11/2020 06:45:00 AM [facility] Surgeries/Procedures Procedure Description Date Indications Data Source(s) Extended Individual Psychotherapy - 45 min 06/22/2020 12:00:00 AM EST - 06/22/2020 12:00:00 AM EST [facility] ([facility]) Extended Individual Psychotherapy - 45 min 0 12:00:00 AM EST [facility] ([facility]) Results ID Date Data Source [id number] 08/07/2020 07:25:00 PM EST [facility] Name Value Range Interpretation Code Description Data Maggie rce(s) Supporting Document(s) SARS coronavirus 2 RNA [Presence] in Res piratory specimen by NOHEMY with probe detection NEGATIVE [facility] This lab was ordered by [facility] a nd reported by [facility]. ID Date Data Source [id number] 07/14/2020 09:33:00 AM EST [facility] Name Value Range Interpretation Code Description Data Maggie rce(s) Supporting Document(s) SARS coronavirus 2 RdRp gene [Presence] in Respiratory specimen by NOHEMY with probe detection Not detected [facility] This lab was ordered by [facility] and reported by [facility]. ID Date Data Source [id number] 06/10/2020 09:55:00 PM EST [facility] Name Value Range Interpretation Code Description Data Maggie rce(s) Supporting Document(s) SARS coronavirus 2 RNA [Presence] in Res piratory specimen by NOHEMY with probe detection [facility] This lab was ordered by [facility] a nd reported by [facility]. Procedure Social History Code Duration Value Status Description Data Source(s ) Smoking 06/22/2020 12:00:00 AM EST Unknown if ever smoked comp leted Unknown if ever smoked [facility] ([facility]) Smoking 06/16/2020 12:00:00 PM EST Tobacco smoki ng consumption unknown (finding) completed Unknown If Ever Smoked [facility] ([facility])
--- OUTSIDE RECORDS SUMMARY | 2020-08-27 14:02 | CCD ---
Author Author [facility] Organization [facility] Address Unknown Phone Unavailable Care Team Providers Care Associate Dean Name Role Phone Colon, Barak Unavailable Unavailable Colon, Barak Unavailable Unavailable Colon, Barak Unavailable Unavailable Colon, Barak Unavailable Unavailable Jeri Epperson Unavailable Micheal Wong MD Unavailable Unavailable AkankshaAngelicaet DOWNSTAIRS MAID Unavailable Akanksha Jv DOWNSTAIRS MAID Unavailable Akanksha, Jv DOWNSTAIRS MAID Unavailable Jenifer Loyd DOWNSTAIRS MAID Unavailable Unavailable Re-disclosure Warning The records that [...] is protected by Article 27-F of the [place] State Public Health law. If you continue you may have access to information: Regarding HIV / AIDS; Provided by facilities licensed or operated by the [facility] Office of Mental Health; or Provided by the [facility] Office for People With Developmental Disabilities. If such information is present, then the following [facility] mandated warning applies: This information has [...] law may result in a fine or long-term sentence or both. A general authorization for the release of medical or other information is NOT sufficient authorization for further disc losure. Allergies and Adverse Reactions Type Description Substance Reaction Status Data Source(s ) Drug allergy No Known Allergies No Known Allergies [facility] Encounters Encounter Providers Location Date Indications Data Source(s ) Extended Individual Psychotherapy - 45 min Attender: Melissa Epperson [facility] 06/22/2020 10:00:00 AM EST - 06/22/2020 10:00:00 AM EST [facility] ([facility]) Attender: Jeri Epperson 06/22/2020 12:00:00 AM EST [facility] ([facility]) Unlisted evaluation and management service 06/07 07:19:00 PM EST [facility] ([facility]) Inpatient Attender: Barak DevineAdmitter: Barak Devine 06/11/2020 06:45:00 AM EST - 06/16/2020 01:00:00 PM EST Suicidal Ideations [facility] Suicidal Ideations Patient discharged. Outpatient Attender: [...] Colon 06/11/2020 06:45:00 AM EST Suicidal Ideations [facility] Suicidal Ideations Outpatient Attender: Micheal Wong [...] to dumont Policy [place] Plan Information MABLE [id number] SP [id number] 100 ALINE [id number] SP [id number] SELF PAY ONLY [id number] MABLE [facility] O [id number] S [id number] SELF PAY MABLE [id number] SP [id number] 100 MEDICAID [id number] SP [id number] SELF PAY ONLY [id number] SP [id number] Problems, Conditions, and Diagnoses Code Display Name Description Problem Type Effective Dates Data Source(s) R45.851 Suicidal ideations R45.851 - Suicidal ideations Diagno sis 06/11/2020 06:45:00 AM [employer] R06.2 Wheezing R06.2 - Wheezing Diagnosis 06/11/2020 06:45:00 AM [employer] Z13.9 Encounter for screening, unspecified Z13 .9 - Encounter for screening, unspecified Diagnosis 06/11/2020 06:45:00 AM [employer] F12.20 Cannabis dependence, uncomplicated F12.2 0 - Cannabis dependence, uncomplicated Diagnosis 06/11/2020 06:45:00 AM [employer] F15.20 Other stimulant dependence, uncomplicate d F15.20 - Other stimulant dependence, uncomplicated Diagnosis 06/11/2020 06:45:00 AM [employer] F60.3 Borderline personality disorder F60.3 - Borderli ne personality disorder Diagnosis 06/11/2020 06:45:00 AM [employer] F43.10 Post-traumatic stress disorder, unspecif ied F43.10 - Post-traumatic stress disorder, unspecified Diagnosis 06/11/2020 06:45:00 AM [employer] F32.9 Major depressive disorder, single episod e, unspecified F32.9 - Major depressive disorder, single episode, unspecified Diagnosis 06/11 06:45:00 AM [employer] F33.2 Major depressive disorder, recurrent sev ere without psychotic features F33.2 - Major depressive disorder, recurrent severe without psychotic features Diagnosis 06/11/2020 06:45:00 AM [employer] Surgeries/Procedures Procedure Description Date Indications Data Source(s) Extended Individual Psychotherapy - 45 min 06/22/2020 12:00:00 AM EST - 06/22/2020 12:00:00 AM EST [facility] ([facility]) Extended Individual Psychotherapy - 45 min 0 12:00:00 AM EST [facility] ([facility]) Results ID Date Data Source [id number] 08/07/2020 07:25:00 PM EST [facility] Name Value Range Interpretation Code Description Data Maggie rce(s) Supporting Document(s) SARS coronavirus 2 RNA [Presence] in Res piratory specimen by NOHEMY with probe detection NEGATIVE [facility] This lab was ordered by [facility] a nd reported by [facility]. ID Date Data Source [id number] 07/14/2020 09:33:00 AM EST [facility] Name Value Range Interpretation Code Description Data Maggie rce(s) Supporting Document(s) SARS coronavirus 2 RdRp gene [Presence] in Respiratory specimen by NOHEMY with probe detection Not detected [facility] This lab was ordered by [facility] and reported by [facility]. ID Date Data Source [id number] 06/10/2020 09:55:00 PM EST [facility] Name Value Range Interpretation Code Description Data Maggie rce(s) Supporting Document(s) SARS coronavirus 2 RNA [Presence] in Res piratory specimen by NOHEMY with probe detection [facility] This lab was ordered by [facility] a nd reported by [facility]. Procedure Social History Code Duration Value Status Description Data Source(s ) Smoking 06/22/2020 12:00:00 AM EST Unknown if ever smoked comp leted Unknown if ever smoked [facility] ([facility]) Smoking 06/16/2020 12:00:00 PM EST Tobacco smoki ng consumption unknown (finding) completed Unknown If Ever Smoked [facility] ([facility])
[2020-08-27 14:11] LABS: FREE T4 0.76 NG/DL (0.76-1.46)
--- NOTE | 2020-08-27 20:54 | ECGEPIP ---
[facility] - ED Test Date: 2020-08-27 Pat Name: NATALIE MOHAMUD Department: Room: - Gender: Female Feeder/Folder: : 1995 Requested By: ISMAEL Hidalgo Order Number: [id number] Reading MD: Karie Enrique Measurements Intervals [place] Rate: 76 P: 43 [place]: 158 QRS: 53 QRSD: 92 T: 51 QT: 392 QTc: 441 Interpretive Statements Normal sinus rhythm increased rate 08/07/20 Electronically Signed on 08-27-2020 20:53:53 EST by Karie Enrique
[2020-08-28] MEDS ORDERED: VENLAFAXINE 37.5 MG TAB PO SCH (09:00)
[2020-08-28] MEDS: VENLAFAXINE **XR** 75MG CAPSULE PO SCH (09:08)
[2020-08-28 09:27] VITALS: BP 148/87
== END 2020-08-28 09:32 ==
LOC: M ED 12:21
DX: R45.851 Suicidal ideations (principal); F17.200 Nicotine dependence, unspecified, uncomplicated; F19.10 Other psychoactive substance abuse, uncomplicated

== ENCOUNTER 2020-10-10 14:21 | Emergency (ER) | payer OTHER ==
[~2020-10-10] VITALS: Ht 177.8 cm; Wt 92.5 kg
[2020-10-10 14:21] VITALS: BP 136/92
[~2020-10-10 14:21] MED LIST changes: +EFFE75CA2 PO
[2020-10-10] MEDS ORDERED: LIDVISCBTL SSP (16:42)
[2020-10-10] MEDS ORDERED: AUGM875T28 PO (16:42)
[2020-10-10] MEDS ORDERED: KETOROLAC TROMETHAMINE 10 MG TAB PO ONE (17:20)
[2020-10-10] MEDS ORDERED: KETO10TAB PO (17:27)
== END 2020-10-10 17:34 | disposition home or self-care (01) ==
LOC: M ED 14:21
DX: K04.7 Periapical abscess without sinus (principal); F41.9 Anxiety disorder, unspecified; F32.9 Major depressive disorder, single episode, unspecified; F43.21 Adjustment disorder with depressed mood; F17.200 Nicotine dependence, unspecified, uncomplicated; Z79.899 Other long term (current) drug therapy

== ENCOUNTER 2020-10-22 14:44 | Inpatient (IN) | payer OTHER ==
[~2020-10-22] VITALS: Ht 177.8 cm; Wt 89.6 kg
[~2020-10-22 14:44] MED LIST changes: +KETO10TAB PO; +LIDVISCBTL SSP
[2020-10-22] MEDS ORDERED: LORazepam 2 MG TAB PO ONE (16:30)
[2020-10-22 17:47] LABS: AMPHETAMINES LEVEL URINE POSITIVE (NEGATIVE); BARBITURATES URINE NEGATIVE (NEGATIVE); BENZODIAZEPINES URINE NEGATIVE (NEGATIVE); CANNABINOIDS URINE POSITIVE (NEGATIVE); COCAINE METABOLITE URINE NEGATIVE (NEGATIVE); METHADONE URINE NEGATIVE (NEGATIVE); OPIATES URINE NEGATIVE (NEGATIVE); PHENCYCLIDINE URINE NEGATIVE (NEGATIVE)
[2020-10-22 18:38] LABS: HEMATOCRIT 36.3 % (36.0-47.0); HEMOGLOBIN 12.1 g/dl (12.0-15.5); MEAN CORPUSCULAR HEMOGLOBIN 30.8 pg (27.0-33.0); MEAN CORPUSCULAR HGB CONC 33.3 g/dl (32.0-36.5); MEAN CORPUSCULAR VOLUME 92.4 fl (80.0-96.0); PLATELET COUNT, AUTOMATED 225 10^3/uL (150-450); RED BLOOD COUNT 3.93 10^6/uL (4.00-5.40); WHITE BLOOD COUNT 8.3 10^3/uL (4.0-10.0)
[2020-10-22 19:06] LABS: HCG, SERUM QUALITATIVE NEGATIVE (NEGATIVE)
[2020-10-22 19:20] LABS: ACETAMINOPHEN LEVEL < 2.0 UG/ML (10.0-30.0); ALBUMIN 3.9 GM/DL (3.2-5.2); ALT/SGPT 18 U/L (12-78); BILIRUBIN,DIRECT 0.3 MG/DL (0.0-0.2); BILIRUBIN,TOTAL 1.2 MG/DL (0.2-1.0); BLOOD UREA NITROGEN 15 MG/DL (7-18); CALCIUM LEVEL 9.1 MG/DL (8.5-10.1); CARBON DIOXIDE LEVEL 29 MEQ/L (21-32); CHLORIDE LEVEL 106 MEQ/L (98-107); CREATININE FOR GFR 0.66 MG/DL (0.55-1.30); ETHYL ALCOHOL (ETHANOL) < 0.003 % (0.000-0.010); GLOMERULAR FILTRATION RATE > 60.0 (>60); GLUCOSE, FASTING 86 MG/DL (70-100); POTASSIUM SERUM 3.9 MEQ/L (3.5-5.1); SALICYLATE LEVEL < 1.7 MG/DL (5.0-30.0); SODIUM LEVEL 142 MEQ/L (136-145); TOTAL PROTEIN 7.2 GM/DL (6.4-8.2)
[2020-10-22] MEDS ORDERED: OLANZapine 5 MG TAB PO ONE (19:30)
[2020-10-22] MEDS ORDERED: MOM 30ML SUSPENSION UDC PO PRN (22:25)
[2020-10-22] MEDS ORDERED: OLANZapine ORAL DISINTEGRATING TAB 5MG PO PRN (22:25)
[2020-10-22] MEDS ORDERED: NICOTINE 21MG/24HR 1 EA TRANSDERMAL TD ONE (22:25)
[2020-10-22] MEDS ORDERED: MAALOX 30 ML SUSP *UDC PO PRN (22:25)
[2020-10-22 23:33] VITALS: BP 120/71
[2020-10-23 06:00] VITALS: BP 112/62
[2020-10-23] MEDS: BACITRACIN OINTMENT 30GM TUBE TOP SCH (16:28)
[2020-10-23 17:12] VITALS: BP 135/62
--- NOTE | 2020-10-23 20:31 | MHHPEPDOC ---
General Date Of Admission: Oct 22, 2020 Legal Status: 9.39 Chief Complaint Psychosis and suicidal ideation History of Present Illness HISTORY OF THE PRESENT ILLNESS: Patient is a 25 -year-old , female, who, as per ED report: " Reason for Referral Pt self presents to ED stating she attempted to kill self 2 days ago by cutting after relapsing on "Elfego." Chief Complaint pt states, "I'm tweaking out and I want to kill myself." Pt reports struggling with drug addiction for many years. States she was sober for about 3 months and then relapsed 2 days ago. As a result of her relapse- pt admits not being able to see her children. Children reside with a family friend due to her on-going substance abuse & CPS involvement. She was apparently told 2 days ago she can't see them, therefore became distressed and grabbed a kitchen knife and cut left forearm with suicidal intent. Numerous superficial lacerations noted. According to Rodrigo Trinh, one laceration should have been sutured but it is too old now. States she tried to cut deeper, but the knife was too dull. Pt still apppears altered, internally pre-occupied, and very anxious at bedside. Admits struggling with AH/VH and believes it is a direct result of injecting Elfego. She describes AH "my kids talking." Pt is unable to describe VH in detail. Continues to express SI with plan for cutting." Psychiatric Review of Systems Depression (2 or more weeks): depressed mood, insomnia/hypersomnia, feelings of excess/guilt, feelings of worthlesness, decreased energy, appetite changes Eve (4 or more days of): irritable/elevated mood, talkativity, pressured, distractibility, engages in risky behavior Psychosis: auditory hallucination, visual hallucination, paranoia PTSD: history of trauma, nightmares and flashbacks, intrusive memories, avoidance of triggers Anxiety: gen/non-specific anxiety, stressor related anxiety, panic attacks Anxiety/ 6 months or more of: easily fatigued, difficulty concentrating, irritability, sleep disturbance Past Psychiatric History Previous Psychiatric Diagnosis: Depression, anxiety, PTSD, Multiple personality disorder (?) Previous Psychiatric Admissions: yes Suicide Attempts: yes, by overdose Psychiatric Follow-up: [facility]. Psychiatric medications: Doesn't remember Past Medical History Medical Problems Denies Head Injury: No Seizures: No Hospitalizations: No Surgeries: Yes (two c-sections) Family Medical/Psychiatric HX Medical Problems She says she was adopted. Psychiatric Disorders: Yes (in adoptive family) Addiction: Yes (she says there's addiction in her adoptive family. Adoptive father does pain killers) Suicide Attemps/Completions: Yes (Grandfather atempted suicide) Addiction History nicotine, cocaine (she used it in the past), other (she uses elfego) Social History Childhood: She says she had a good relationship with adoptive parents, no siblings. Abuse/Trauma: Yes Current Living Situation: Yes Education: Didn't finish HS Employment: [employer] Social Support: None Legal: Denies Marital: , has 2 children. Mental Status Examination General Appearance: unkempt, disheveled, hospital scubs/clothing Build: average Demeanor: withdrawn, other (very sleepy, looks sedated) Eye Contact: poor Activity: slowed Behavior: cooperative, loss of interests, withdrawn Speech: slurred, slow, non-spontaneous Mood: depressed, anxious Affect: constricted, congruent Thought Process: logical/linear Thought Content (Delusions): none reported Thought Content (Other): preoccupied, ideas of reference Thought Content (Aggressive): none reported Perception (Hallucinations): auditory (not at the time, but she reports she had them at the time of her admission) Perception (Other): none reported Cognition (Impairment of): memory, attention/concentration, other (patient has been using drugs, she is not very attentive, she is very sedated) Cognition(Intelligence Est.): average Oriented: Alert (she is very sleepy, she knows she is at the Hospital but she ignores date and time. ) Insight: fair Judgment: Poor Psychosis: Psychotic Perceptions Diagnoses 1. Unspecified psychotic disorder 2. R/O substance induced psychosis 3. Substance abuse ( elfego) 4. Adjustment disorder with anxiety and depression A-FIB/CHADSVASC A-FIB History Current/History of A-Fib/PAF?: No Current PO Anticoag Therapy: No Age/Risk Factor Scoring CHADSVASC: CHADSVASC Response (Comments) Value Age Risk Factor Age < 65 years old 0 Gender Risk Factor Female 1 Hx of CHF No 0 Hx of HTN No 0 Hx of Stroke/TIA/or VTE No 0 Hx of Diabetes No 0 Hx of Vascular Disease No 0 Total 1 Treatment Treatment ordered: NONE Reason Anticoagulant not given: Not indicated/Fssfc9bydt Assessment The patient was very sedated at the time of her evaluation. She had her eyes closed most of the time although she was able to answer the questions. She said she was interested in going to a Rehab program and I explained she can talk about this tomorrow with her treatment team so that they can provide her with information about these programs and she can start making call,s making inquiries about what is needed in order to be accepted at these programs. Initial Treatment Plan 1. Patient was admitted on a [9.39] status. 2. Complete history was obtained. 3. With patients permission, family will be contacted and database will be expanded. 4. Patients medication regimen will be reviewed and changed accordingly. 5. Patient will be provided with protected environment. 6. Patient will be treated with individual, group, and milieu therapies. 7. Patient will receive supportive psych-education. 8. Discharge planning will commence immediately. 9. Outpatient follow-up treatment will be strongly recommended. 10. The initial treatment plan will focus initially on: * Depression. * Risk for suicide. ESTIMATED LENGTH OF STAY: - DAYS. TIME SPENT COUNSELING AND COORDINATING INITIAL CARE: minutes. Tobacco Cessation Screen Tobacco Cessation Tx Ordered?: Yes Ordered/Pending Vital Signs Vital Signs Date Time Temp Pulse Resp B/P (MAP) Pulse Ox O2 Delivery O2 Flow Rate FiO2 10/23/20 06:00 99.0 88 18 112/62 (79) 95 10/22/20 23:33 Room Air Laboratory Data 24H Labs Laboratory Tests 2 10/22/20 16:58: Nucleated Red Blood Cells % (auto) 0.0, Anion Gap 7L, Glomerular Filtration Rate > 60.0, Calcium Level 9.1, Total Bilirubin 1.2H, Direct Bilirubin 0.3H, Aspartate Amino Transf (AST/SGOT) 13, Alanine Aminotransferase (ALT/SGPT) 18, Al kaline Phosphatase 70, Total Protein 7.2, Albumin 3.9, Albumin/Globulin Ratio 1.2, Thyroid Stimulating Hormone (TSH) 1.230, Human Chorionic Gonadotropin, Qual NEGATIVE, Salicylates Level < 1.7L, Urine Opiates Screen NEGATIVE, Urine Methadone Screen NEGATIVE, Acetaminophen Level < 2.0L, Urine Barbiturates Screen NEGATIVE, Urine Phencyclidine Screen NEGATIVE, Urine Amphetamines Screen POSITIVEH, Urine Benzodiazepines Screen NEGATIVE, Urine Cocaine Metabolite Screen NEGATIVE, Urine Cannabinoids Screen POSITIVEH, Ethyl Alcohol Level < 0.003 CBC/BMP Laboratory Tests 10/22/20 16:58 Medications Unable to Obtain Active Prescriptions or Reported Meds Allergies Coded Allergies: No Known Allergies (Unverified , 08/27/20) MARIA ISABEL MURPHY MD Oct 23, 2020 14:49
[2020-10-23] MEDS: PALIPERIDONE 3 MG ER TAB (INVEGA) PO SCH (22:42)
[2020-10-24] MEDS: OLANZapine ORAL DISINTEGRATING TAB 5MG PO PRN ×2 (07:34→18:39)
[2020-10-24 08:10] LABS: CHOLESTEROL RISK RATIO 3.389 (<5)
[2020-10-24] MEDS: BACITRACIN OINTMENT 30GM TUBE TOP SCH (09:00)
[2020-10-24] MEDS: SERTRALINE HCL 50 MG TAB PO SCH (12:28)
--- NOTE | 2020-10-24 16:30 | MHIPN ---
PROGRESS NOTE DATE: 10/24/2020 SUBJECTIVE: I used drugs, I feel depressed and I want to go to rehab. OBJECTIVE: She is a 25-year-old female who has history of unspecified psychotic disorder and substance use disorder, came in with suicide attempt by cutting her wrist. She had auditory hallucinations. She used elfego before coming to the hospital. Continues to have auditory hallucinations. MENTAL STATUS EXAMINATION: Obese lady who is cooperative, sleeping in her bed, lying in her bed, depressed. Affect constricted. Psychomotor activity is retarded. Thought process: Linear, goal directed. Thought content: complains of some vague suicidal ideas without plans. Continues to have some auditory hallucinations. Her insight and judgment are poor. DIAGNOSIS: 1. Psychotic disorder, not otherwise specified. 2. Substance use disorder. VITAL SIGNS: Temperature 99, pulse is 83, respirations 19, blood pressure 135/62. LABORATORY DATA: Complete blood count (CBC) within normal limits. Basic metabolic panel (BMP) within normal limits. Toxicology: She was positive for amphetamine and cannabis. CURRENT MEDICATIONS: Sertraline 50 mg once daily, paliperidone 3 mg at night. PLAN: The patient will be monitored on the unit. Plan to refer her to an inpatient rehab. Estimated time spent is 25 minutes.
[2020-10-24 18:12] VITALS: BP 142/21
[2020-10-24] MEDS: NICOTINE 21MG/24HR 1 EA TRANSDERMAL TD PRN (18:40)
[2020-10-24] MEDS: PALIPERIDONE 3 MG ER TAB (INVEGA) PO SCH (21:51)
[2020-10-24] MEDS: traZODone 50 MG TAB PO PRN (21:51)
[2020-10-24] MEDS: ACETAMINOPHEN TAB 650MG DOSE (2X325MG) PO PRN (21:52)
[2020-10-25 06:00] VITALS: BP 141/66
--- NOTE | 2020-10-25 08:12 | HPEPDOC ---
General Date of Admission Oct 22, 2020 at 22:21 Date of Service: Oct 23, 2020 Chief Complaint The patient is a 25-year-old female admitted with a reason for visit of Uspecified Psychotic Do. Source: Patient History of Present Illness 25 year old female was admitted to [facility] for psychosis. Her utox was positive for amphetamine, cocaine and marijuana. Patient had self presented to ED stating she attempted to kill self 2 days ago by cutting after relapsing on "Arlene." She was sober for 3 months then relapsed. 2 days ago she was told that she could not see her children and thats when she tried to kill herself by cutting. She is being examined here for medical history and physical. She did not know where she was and how she had come to the hospital. She is somnolent and looks like still under the effect of the substances that she had used. Complained of sore throat, denied any difficulty swallowing. denied any ear pain or nasal congestion or cough. No other complaints. Home Medications Unable to Obtain Active Prescriptions or Reported Meds Allergies Coded Allergies: No Known Allergies (Unverified , 08/27/20) Past Medical History Medical History Anxiety Depression PTSD Polysubstance use Marijuana use Tobacco use Surgical History 2 Family History Significant Family History: Hypertension (mother) The patient is adopted so does not know much of her family history Social History * Smoker: current smoker Drugs: marijuana A-FIB/CHADSVASC A-FIB History Current/History of A-Fib/PAF?: No Review of Systems Constitutional: Denies: Chills, Fever, Night Sweats Eyes: Denies: Pain, Vision change ENT: Reports: Sore Throat Skin: Denies: Rash, Lesions, Breakdown Pulmonary: Denies: Dyspnea, Cough Cardiovascular: Denies: Chest Pain, Palpitations, Orthopnea, Paroxysmal Noc. Dyspnea, Lt Headedness Gastrointestinal: Denies: Nausea, Vomiting, Abdominal Pain, Diarrhea Genitourinary: Denies: Dysuria, Frequency, Incontinence, Retention Musculoskeletal: Denies: Neck Pain, Back Pain, Joint Pain, Muscle Pain, Spasms Physical Examination General Exam: Positive: Cooperative, No Acute Distress, Other (somnolent) Eye Exam: Positive: PERRLA, Conjunctiva & lids normal, EOMI; Negative: Sclera icteric ENT Exam: Positive: Atraumatic, Mucous membr. moist/pink, Pharynx Normal Neck Exam: Positive: Supple; Negative: JVD, thyromegaly Chest Exam: Positive: Clear to auscultation, Normal air movement Heart Exam: Positive: Rate Normal, Regular Rhythm, Normal S1, Normal S2; Negative: Murmurs, Rubs Abdomen Exam: Positive: Normal bowel sounds, Soft; Negative: Tenderness Extremity Exam: Positive: Normal pulses; Negative: Clubbing, Cyanosis, Edema Skin Exam: Positive: Other skin issue (superficial cut marquez on her left forearm) Vital Signs Vital Signs Date Time Temp Pulse Resp B/P (MAP) Pulse Ox O2 Delivery O2 Flow Rate FiO2 10/23/20 06:00 99.0 88 18 112/62 (79) 95 10/22/20 23:33 Room Air Laboratory Data Labs 24H Laboratory Tests 2 10/22/20 16:58: Nucleated Red Blood Cells % (auto) 0.0, Anion Gap 7L, Glomerular Filtration Rate > 60.0, Calcium Level 9.1, Total Bilirubin 1.2H, Direct Bilirubin 0.3H, Aspartate Amino Transf (AST/SGOT) 13, Alanine Aminotransferase (ALT/SGPT) 18, Alkaline Phosphatase 70, Total Protein 7.2, Albumin 3.9, Albumin/Globulin Ratio 1.2, Thyroid Stimulating Hormone (TSH) 1.230, Human Chorionic Gonadotropin, Qual NEGATIVE, Salicylates Level < 1.7L, Urine Opiates Screen NEGATIVE, Urine Methadone Screen NEGATIVE, Acetaminophen Level < 2.0L, Urine Barbiturates Screen NEGATIVE, Urine Phencyclidine Screen NEGATIVE, Urine Amphetamines Screen POSITIVEH, Urine Benzodiazepines Screen NEGATIVE, Urine Cocaine Metabolite Screen NEGATIVE, Urine Cannabinoids Screen POSITIVEH, Ethyl Alcohol Level < 0.003 CBC/BMP Laboratory Tests 10/22/20 16:58 Microbiology Microbiology 10/22/20 Respiratory Virus Panel (PCR) ([facility]) - Final, Complete Assessment/Plan 25 year old female was admitted to [facility] for psychosis. Her utox was positive for amphetamine, cocaine and marijuana. She is being examined here for medical history and physical. Unspecified Psychosis/ polysubstance abuse/ depression as per psychiatry No active medical issues. DAYNA WILKINSON MD Oct 23, 2020 13:02
[2020-10-25] MEDS: OLANZapine ORAL DISINTEGRATING TAB 5MG PO PRN (08:17)
[2020-10-25] MEDS: SERTRALINE HCL 50 MG TAB PO SCH (08:17)
[2020-10-25] MEDS: BACITRACIN OINTMENT 30GM TUBE TOP SCH (08:17)
[2020-10-25] MEDS: ACETAMINOPHEN TAB 650MG DOSE (2X325MG) PO PRN ×2 (08:24→19:55)
[2020-10-25] MEDS: NICOTINE 21MG/24HR 1 EA TRANSDERMAL TD PRN (10:50)
--- NOTE | 2020-10-25 13:53 | MHIPNPDOC ---
[facility] Progress Note Progress Note DATE OF SERVICE: 10/25/20 SUBJECTIVE: I used drugs, I feel depressed and I want to go to out patient rehab. OBJECTIVE: She is a 25-year-old female who has history of unspecified psychotic disorder and substance use disorder, came in with suicide attempt by cutting her wrist. She had auditory hallucinations. She used elfego before coming to the hospital. Continues to have auditory hallucinations. Pt improving. But still depressed. MENTAL STATUS EXAMINATION: Obese lady who is cooperative, sleeping in her bed, lying in her bed, depressed. Affect constricted. Psychomotor activity is retarded. Thought process: Linear, goal directed. Thought content: complains of some vague suicidal ideas without plans. Continues to have some auditory hallucinations. Her insight and judgment are poor. DIAGNOSIS: 1. Psychotic disorder, not otherwise specified. 2. Substance use disorder. VITAL SIGNS: Temperature 99, pulse is 83, respirations 19, blood pressure 135/62. LABORATORY DATA: Complete blood count (CBC) within normal limits. Basic metabolic panel (BMP) within normal limits. Toxicology: She was positive for amphetamine and cannabis. CURRENT MEDICATIONS: Sertraline 50 mg once daily, paliperidone 3 mg at night. PLAN: The patient will be monitored on the unit. Plan to refer her to an inpatient rehab. Estimated time spent is 25 minutes. Vital Signs Vital Signs Date Time Temp Pulse Resp B/P (MAP) Pulse Ox O2 Delivery O2 Flow Rate FiO2 10/25/20 06:00 98.7 71 18 141/66 (91) 98 10/22/20 23:33 Room Air Current Medications Current Medications Medications (Trade) Dose Ordered Sig/Kimani Route PRN Reason Start Time Stop Time Status Last Admin Dose Admin Acetaminophen (Tylenol Tab) 650 mg Q6HP PRN PO HEADACHE or DISCOMFORT 10/22/20 22:25 10/25/20 08:24 Al Hydrox/Mg Hydrox/Simethicone (Mylanta) 30 ml Q4HP PRN PO HEARTBURN/INDIGESTION 10/22/20 22:25 Bacitracin (Bacitracin Oint) Apply topically daily... DAILY TOP 10/23/20 09:00 10/25/20 08:17 Home Med (Med Rec Complete!) ASDIRECTED XX 10/22/20 20:40 10/22/20 20:44 DC Magnesium Hydroxide (Milk Of Magnesia) 30 ml DAILYPRN PRN PO CONSTIPATION 10/22/20 22:25 Nicotine (Nicoderm Cq 21mg) 1 patch DAILYPRN PRN TD NICOTINE WITHDRAWAL 10/22/20 22:25 10/25/20 10:50 Olanzapine (ZyPREXA ZYDIS) 5 mg Q4HP PRN PO AGITATION 10/22/20 22:25 10/23/20 20:34 DC 10/23/20 13:55 Olanzapine (ZyPREXA ZYDIS) 5 mg Q6HP PRN PO AGITATION 10/24/20 08:00 10/25/20 08:17 Paliperidone (Invega) 3 mg QHS PO 10/23/20 21:00 10/24/20 21:51 Sertraline HCl (Zoloft) 50 mg DAILY PO 10/24/20 09:00 10/25/20 08:17 Trazodone HCl (Desyrel) 50 mg QHSP PRN PO INSOMNIA 10/22/20 22:25 10/24/20 21:51 Allergies Coded Allergies: No Known Allergies (Unverified , 08/27/20) ELROY METCALF MD Oct 25, 2020 13:53
[2020-10-25 18:00] VITALS: BP 140/69
[2020-10-25] MEDS: PALIPERIDONE 3 MG ER TAB (INVEGA) PO SCH (19:55)
[2020-10-25] MEDS: traZODone 50 MG TAB PO PRN (20:57)
[2020-10-26 06:52] VITALS: BP 137/81
[2020-10-26] MEDS: NICOTINE 21MG/24HR 1 EA TRANSDERMAL TD PRN (08:15)
[2020-10-26] MEDS: SERTRALINE HCL 50 MG TAB PO SCH (08:15)
[2020-10-26] MEDS: BACITRACIN OINTMENT 30GM TUBE TOP SCH (08:16)
[2020-10-26] MEDS ORDERED: PALI1TAB2 PO (10:52)
[2020-10-26] MEDS ORDERED: SERT50TA29 PO (10:52)
--- NOTE | 2020-10-26 11:32 | MHDS ---
[facility] DISCHARGE SUMMARY DATE OF ADMISSION: 10/22/2020 DATE OF DISCHARGE: 10/26/2020 IDENTIFYING DATA: This is a 25-year-old female with history of unspecified psychotic disorder, substance use disorder, attempted suicide by cutting her wrist. She had auditory hallucinations. She used Arlene before coming to the hospital. For details of history of present illness (HPI), past psychiatric history, personal history, medical history, substance abuse history, please refer to the initial evaluation. COURSE IN THE HOSPITAL: Patient initially was complaining of auditory hallucinations and depressed mood. She was placed on paliperidone 3 mg at night and sertraline 50 mg once daily. Patient was also provided with individual, group and milieu therapy. Initially, she was not sleeping better. She was isolative, but subsequently, her sleep improved. Patient started attending activities. Denied any side effect of the medication. Denied any suicidal or homicidal ideas. She was stable at the time of discharge. MENTAL STATUS EXAMINATION: Casually dressed, well-groomed with good personal hygiene. Made good eye contact. Psychomotor activity is normal. Speech: Rate, rhythm, volume are good. Denied any auditory or visual hallucinations. Denied any suicidal or homicidal ideas. Memory: Immediate, remote, recent are good. Mood is euthymic. Affect is mood congruent. Insight and judgment are good. VITAL SIGNS: Temperature 98.1, pulse 75, respiratory rate 20, blood pressure 137/81. LABORATORY STUDIES: CBC within normal limits. CMP within normal limits except total bilirubin was slightly high. Toxicology: She was positive for amphetamines and cannabis. CURRENT MEDICATIONS: - sertraline 50 mg daily - paliperidone 3 mg at night DISCHARGE PLAN: Patient will be followed up at [facility]. She will be going home after discharge. ESTIMATED TIME SPENT: Less than 30 minutes.
== END 2020-10-26 12:15 | disposition home or self-care (01) | DRG 751 ==
LOC: M ED 14:44 → M ED INP 22:21 → M PSY 23:30
PROVIDERS: ADMIT Psychiatry & Neurology Psychiatry; ATTEND Psychiatry & Neurology Psychiatry
DX: F29 Unspecified psychosis not due to a substance or known physiological condition (principal); F17.200 Nicotine dependence, unspecified, uncomplicated; F43.23 Adjustment disorder with mixed anxiety and depressed mood; Z91.5 Personal history of self-harm; F19.10 Other psychoactive substance abuse, uncomplicated

== ENCOUNTER 2020-10-31 18:35 | Inpatient (IN) | payer OTHER ==
[~2020-10-31] VITALS: Ht 172.7 cm; Wt 89.1 kg
[~2020-10-31 18:35] MED LIST changes: +PALI1TAB2 PO
[2020-10-31] MEDS ORDERED: LIDO2SOL9 (19:56)
[2020-10-31] MEDS ORDERED: AMOX875T2 (19:56)
[2020-10-31] MEDS ORDERED: KETO10TAB (19:56)
[2020-10-31 20:05] LABS: HEMATOCRIT 34.4 % (36.0-47.0); HEMOGLOBIN 11.7 g/dl (12.0-15.5); MEAN CORPUSCULAR HEMOGLOBIN 30.7 pg (27.0-33.0); MEAN CORPUSCULAR VOLUME 90.3 fl (80.0-96.0); PLATELET COUNT, AUTOMATED 198 10^3/uL (150-450); RED BLOOD COUNT 3.81 10^6/uL (4.00-5.40); WHITE BLOOD COUNT 8.3 10^3/uL (4.0-10.0)
[2020-10-31 20:21] LABS: AMPHETAMINES LEVEL URINE POSITIVE (NEGATIVE); BARBITURATES URINE NEGATIVE (NEGATIVE); BENZODIAZEPINES URINE NEGATIVE (NEGATIVE); CANNABINOIDS URINE POSITIVE (NEGATIVE); COCAINE METABOLITE URINE NEGATIVE (NEGATIVE); METHADONE URINE NEGATIVE (NEGATIVE); OPIATES URINE NEGATIVE (NEGATIVE); PHENCYCLIDINE URINE NEGATIVE (NEGATIVE)
[2020-10-31 20:35] LABS: HCG, SERUM QUALITATIVE NEGATIVE (NEGATIVE)
[2020-10-31] MEDS ORDERED: ACETAMINOPHEN TAB 650MG DOSE (2X325MG) PO ONE (20:40)
[2020-10-31] MEDS ORDERED: diphenhydrAMINE 25MG CAP PO ONE (20:40)
[2020-10-31] MEDS ORDERED: METOCLOPRAMIDE 10 MG TAB PO ONE (20:40)
[2020-10-31 20:47] LABS: ACETAMINOPHEN LEVEL < 2.0 UG/ML (10.0-30.0); ALT/SGPT 18 U/L (12-78); BILIRUBIN,DIRECT 0.3 MG/DL (0.0-0.2); BILIRUBIN,TOTAL 1.2 MG/DL (0.2-1.0); BLOOD UREA NITROGEN 7 MG/DL (7-18); CALCIUM LEVEL 8.7 MG/DL (8.5-10.1); CARBON DIOXIDE LEVEL 28 MEQ/L (21-32); CHLORIDE LEVEL 106 MEQ/L (98-107); CREATININE FOR GFR 0.44 MG/DL (0.55-1.30); ETHYL ALCOHOL (ETHANOL) < 0.003 % (0.000-0.010); GLOMERULAR FILTRATION RATE > 60.0 (>60); GLUCOSE, FASTING 83 MG/DL (70-100); SALICYLATE LEVEL < 1.7 MG/DL (5.0-30.0); SODIUM LEVEL 142 MEQ/L (136-145); THYROID STIMULATING HORMONE 0.308 uIU/ML (0.358-3.740); TOTAL PROTEIN 7.6 GM/DL (6.4-8.2)
[2020-11-01 00:22] LABS: RSV AMPLIFICATION NEGATIVE (NEGATIVE)
[2020-11-01] MEDS ORDERED: PALI1TAB2 PO (11:14)
[2020-11-01] MEDS ORDERED: SERT50TA29 PO (11:14)
[2020-11-01] MEDS ORDERED: MOM 30ML SUSPENSION UDC PO PRN (11:55)
[2020-11-01] MEDS ORDERED: MAALOX 30 ML SUSP *UDC PO PRN (11:55)
[2020-11-01] MEDS ORDERED: POTASSIUM CHLORIDE 10 MEQ SR TABLET PO ONE (12:40)
--- NOTE | 2020-11-01 13:23 | ECGEPIP ---
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
[2020-11-01 15:18] VITALS: BP 140/70
[2020-11-01] MEDS ORDERED: NICOTINE 21MG/24HR 1 EA TRANSDERMAL TD PRN (20:25)
[2020-11-01] MEDS: traZODone 50 MG TAB PO PRN (21:00)
[2020-11-02 06:33] VITALS: BP 134/77
[2020-11-02] MEDS: ACETAMINOPHEN TAB 650MG DOSE (2X325MG) PO PRN ×2 (08:12→14:51)
[2020-11-02] MEDS: GABAPENTIN 100 MG CAP PO SCH ×3 (10:05→21:47)
[2020-11-02] MEDS: SERTRALINE HCL 25 MG TABLET PO SCH (10:05)
[2020-11-02] MEDS: NICOTINE 21MG/24HR 1 EA TRANSDERMAL TD SCH (10:06)
--- NOTE | 2020-11-02 10:08 | MHHPE ---
[facility] HISTORY AND PHYSICAL DATE OF ADMISSION: 11/01/2020 IDENTIFYING DATA: She is a 25-year-old female, who lives by herself, was admitted because of suicidal thoughts. CHIEF COMPLAINT: I relapsed on elfego. HISTORY OF PRESENT ILLNESS: The patient recently was discharged less than a week ago from [facility]. She relapsed on elfego and she used elfego IV and had suicidal thoughts, called the police, who brought her to the hospital. The patient had numerous hospitalizations. She had significant substance abuse history. She complained of worthlessness, hopelessness. The patient had custody of her children, which has been actually taken over by Child Protective Services (CPS) because of her drug issue. Currently denies any suicidal plans or any auditory hallucinations. PAST PSYCHIATRIC HISTORY: She has a history of multiple psychiatric hospitalizations and several treatments as outpatient, as well as inpatient. Substance use relapse. PAST MEDICAL HISTORY: Denies any medical problems. FAMILY HISTORY: She was adopted. PERSONAL HISTORY: The relationship with her adopted parents is good. She completed high school graduation. She worked at [employer]. The patient is currently severely depressed. Has suicidal thoughts without plans. MENTAL STATUS EXAMINATION: Causally dressed, obeys being in her bed, cooperative. Made poor eye contact. Speech rate, rhythm, volume are good. Thought process: Linear, goal directed. Thought content: Reports she has suicidal or homicidal ideas without plans. Memory, immediate, remote, recent are good. Attention is good. DIAGNOSES: 1. Major mood disorder, not otherwise specified. 2. Major depressive disorder. 3. Substance induced mood disorder. 4. Polysubstance use disorder. VITAL SIGNS: Temperature 97.9, pulse is 70, respiratory rate is 20, blood pressure is 134/77, pulse oximetry 100%. Her last complete blood count (CBC) within normal limits. However, her RBC was low and hematocrit was low. Comprehensive metabolic panel (CMP): Potassium is 3. Toxicology is positive for cannabis and amphetamine. MEDICATIONS: I will replace her back on antidepressants, on citalopram and place her on gabapentin 200 mg three times daily and Lamictal 25 mg at night. REVIEW OF SYSTEMS: Denies any chest pain, palpitations. Denies any shortness of breath or cough. Denies sore throat, headache, epistaxis. Denies night sweats and lost of weight. BUSINESS SUPPORT: Denies numbness, tingling or dizziness. Denies dysuria or hematuria. Denies abdominal pain or change in bowel habits. PLAN: Admit to [facility]. She will be followed up by hospitalist for medical needs. The patient will be on suicide watch. The patient will receive individual, group and Milieu therapy. Estimated length of stay 4 to 5 days. Time spent is 45 minutes.
--- NOTE | 2020-11-02 13:26 | HPEPDOC ---
[facility] Medical History & Physical Date of Admission Nov 01, 2020 Date of Service: Nov 02, 2020 History and Physical CHIEF COMPLAINT: routine medical examination HISTORY OF PRESENT ILLNESS: 25 y/o F admitted to [facility] for mood d/o, anxiety/depression, ivdu w elfego c/o left arm mass w fluctuance and tenderness, chills w/o documented fever, w/o erythema, and request hepatitis testing. pain is 5/10 on pain scale. no c/o purulence. She also c/o left mandibular tooth ache after "I broke my tooth in the back," w/o dysphagia, odynophagia, abscess and still able to eat and drink w/o difficulty. PAST MEDICAL HISTORY: suicide attempt with wrist cutting, anxiety/depression. ptsd, polysubstance abuse PAST SURGICAL HISTORY: 2 SOCIAL HISTORY: uses elfego recreationally. smoker, denies etoh. FAMILY HISTORY: adopted unknown biological family history ALLERGIES: Please see below. REVIEW OF SYSTEMS: 10 point ros neg aside from + findings on HPI HOME MEDICATIONS: Please see below. PHYSICAL EXAMINATION: VITAL SIGNS: see below GENERAL APPEARANCE: aaox 3 no distress HEENT: no thyromegaly moist mm. poor dentition w missing teeth, dental carries. CARDIOVASCULAR: s1 s2 rrr LUNGS: ctab aebe ABDOMEN: +bs soft nt nd EXTREMITIES: no c/c/e. left arm w 2cm fluctuant mass w/o erythema or induration. multiple skin track marquez. LABORATORY DATA: See below. IMAGING/MICROBIOLOGY: SEE BELOW ASSESSMENT AND PLAN: left arm pain w fluctuant mass-no signs of cellulitis. check us, esr, crp, procalcitonin. if procalcitonin is >0.26, bactrim or cephalexin x 7days, and if us has abscess, ortho or gen surgery for i&d, prn painmeds tooth ache-orthopantogram. prn pain meds. outpt dental appt polysubstance abuse w skin tracks-rehab. topical triple abx x 5days bid, check hepatitis serology. depression/anxiety/ptsd, h/o suicide attempt by wrist cutting-per psychiatrist. ASSESSMENT: PLAN: psychiatrist managing acute issues. Hospitalist signing off. pls re-consult if new acute medical issues arise. Vital Signs Vital Signs Date Time Temp Pulse Resp B/P (MAP) Pulse Ox O2 Delivery O2 Flow Rate FiO2 11/02/20 06:33 97.9 70 20 134/77 (96) 100 Room Air Laboratory Data Labs 24H Laboratory Tests 2 11/01/20 12:56: POC Glucose (Misc Panel) 100, POC Sodium (Misc Panel) 141, POC Potassium (Misc Panel) 3.8, POC Chloride (Misc Panel) 102, POC Total CO2 (Misc Panel) 29.0H, POC Blood Urea Nitrogen (Misc Panel 8, POC Ionized Calcium (Misc Panel) 5.0, POC Creatinine (Misc Panel) 0.4L, POC Hematocrit (Misc Panel) 35.0L Home Medications Scheduled Paliperidone (Paliperidone ER) 3 Mg Tab.er.24, 3 MG PO QHS Sertraline HCl (Sertraline HCl) 50 Mg Tablet, 50 MG PO DAILY Allergies Coded Allergies: No Known Allergies (Unverified , 08/27/20) A-FIB/CHADSVASC A-FIB History Current/History of A-Fib/PAF?: No Current PO Anticoag Therapy: No Age/Risk Factor Scoring CHADSVASC: CHADSVASC Response (Comments) Value Age Risk Factor Age < 65 years old 0 Gender Risk Factor Female 1 Hx of CHF No 0 Hx of HTN No 0 Hx of Stroke/TIA/or VTE No 0 Hx of Diabetes No 0 Hx of Vascular Disease No 0 Total 1 Treatment Treatment ordered: NONE ROYCE ROLDAN MD Nov 02, 2020 12:09
[2020-11-02 13:51] LABS: BASO % 0.5 % (0.0-1.0); EOS # 0.2 10^3/uL (0.0-0.5); EOS % 3.2 % (0.0-3.0); HEMATOCRIT 34.5 % (36.0-47.0); HEMOGLOBIN 11.5 g/dl (12.0-15.5); LYMPH # 1.7 10^3/uL (1.5-5.0); LYMPH % 25.6 % (24.0-44.0); MEAN CORPUSCULAR HEMOGLOBIN 30.9 pg (27.0-33.0); MEAN CORPUSCULAR HGB CONC 33.3 g/dl (32.0-36.5); MEAN CORPUSCULAR VOLUME 92.7 fl (80.0-96.0); MONO # 0.5 10^3/uL (0.0-0.8); NEUTROPHILS # 4.1 10^3/uL (1.5-8.5); NEUTROPHILS % 62.4 % (36.0-66.0); PLATELET COUNT, AUTOMATED 192 10^3/uL (150-450); RED BLOOD COUNT 3.72 10^6/uL (4.00-5.40); WHITE BLOOD COUNT 6.6 10^3/uL (4.0-10.0)
--- NOTE | 2020-11-02 14:00 | REP ---
INDICATION: mandibular tooth ache. COMPARISON: None. TECHNIQUE: Panorex mandibular view. FINDINGS: There are multiple carious maxillary teeth, 2 molars on the right and 1 on the left. There is a missing mandibular tooth on the right. There is extensive caries in the 2nd molar on the left mandible and there is a small periapical radiolucency at the tooth root of this tooth on the left. This should be correlated clinically. IMPRESSION: Multiple carious mandibular and maxillary teeth. Small periapical radiolucency adjacent to the tooth roots of the 2nd molar on the left mandible. <Electronically signed by Ernesto Castle > 11/02/20 [id number]
--- NOTE | 2020-11-02 14:08 | REP ---
INDICATION: left arm fluctuant mass h/o iv du r/o abscess. COMPARISON: None TECHNIQUE: Multiple ultrasonographic images of the left anterior forearm just inferior to the elbow joint and slightly medial FINDINGS: There are no cystic or solid masses. There are no abnormal fluid collections. IMPRESSION: No ultrasonographic evidence of an abnormality. <Electronically signed by Patricio Shoemaker > 11/02/20 [id number]
[2020-11-02 14:29] LABS: ERYTHROCYTE SEDIMENTATION RATE 28 mm/hr (0-20)
[2020-11-02] MEDS: NEOSPORIN TOP OINT 15GM TOP SCH ×2 (14:52→21:00)
[2020-11-02] MEDS: hydrOXYzine 25 MG TAB PO PRN (15:11)
[2020-11-02 15:17] LABS: ALBUMIN 3.5 GM/DL (3.2-5.2); ALT/SGPT 18 U/L (12-78); BILIRUBIN,DIRECT 0.1 MG/DL (0.0-0.2); BILIRUBIN,TOTAL 0.4 MG/DL (0.2-1.0); BLOOD UREA NITROGEN 9 MG/DL (7-18); C REACTIVE PROTEIN QUANTITATIV 0.89 MG/DL (0.00-0.30); CALCIUM LEVEL 8.8 MG/DL (8.5-10.1); CARBON DIOXIDE LEVEL 26 MEQ/L (21-32); CHLORIDE LEVEL 111 MEQ/L (98-107); CREATININE FOR GFR 0.47 MG/DL (0.55-1.30); GLOMERULAR FILTRATION RATE > 60.0 (>60); GLUCOSE, FASTING 144 MG/DL (70-100); HEPATITIS A ANTIBODY IGM NEGATIVE (NEGATIVE); HEPATITIS B CORE ANTIBODY IGM NEGATIVE (NEGATIVE); HEPATITIS B SURFACE ANTIGEN NEGATIVE (NEGATIVE); POTASSIUM SERUM 3.8 MEQ/L (3.5-5.1); SODIUM LEVEL 140 MEQ/L (136-145); TOTAL PROTEIN 6.7 GM/DL (6.4-8.2)
[2020-11-02 16:17] VITALS: BP 123/80
[2020-11-02] MEDS: IBUPROFEN 400MG TAB PO SCH (17:20)
[2020-11-02] MEDS: lamoTRIgine 25MG TAB PO SCH (21:47)
[2020-11-03 07:02] VITALS: BP 124/89
[2020-11-03] MEDS: NEOSPORIN TOP OINT 15GM TOP SCH ×2 (09:00→20:45)
[2020-11-03] MEDS: SERTRALINE HCL 25 MG TABLET PO SCH (09:28)
[2020-11-03] MEDS: NICOTINE 21MG/24HR 1 EA TRANSDERMAL TD SCH (09:29)
[2020-11-03] MEDS: IBUPROFEN 400MG TAB PO SCH ×2 (09:29→18:00)
[2020-11-03] MEDS: GABAPENTIN 100 MG CAP PO SCH ×3 (09:31→20:44)
--- NOTE | 2020-11-03 13:57 | MHIPN ---
[facility] PROGRESS NOTE DATE: 11/03/2020 SUBJECTIVE: "I'm doing better. I slept well. I don't have any suicidal thoughts." OBJECTIVE: She is a 25-year-old female who lives by herself. Was admitted because of suicidal thoughts. Recently she was discharged less than a week ago. She relapsed on Arlene. She used intravenous (IV) injection, had suicidal thoughts, and she was brought to the hospital. Plan is for her to go to the inpatient rehabilitation. She feels less depressed, mild hopelessness. MENTAL STATUS EXAMINATION: Casually dressed, cooperative. Made good eye contact. Psychomotor activity is normal. Mood is mildly depressed. Affect is constricted. Denied auditory or visual hallucinations. Denied suicidal or homicidal ideas. Memory, immediate, remote, recent, is good. DIAGNOSES: 1. Major depressive disorder. 2. Substance-induced mood disorder. 3. Polysubstance use disorder. VITAL SIGNS: Temperature 97.9, pulse 72, respiratory rate is 20, blood pressure is 124/89, pulse oximetry 97. LABORATORY DATA: CBC within normal limits. CMP within normal limits. Toxicology was positive for amphetamines and cannabis. MEDICATIONS: - lamotrigine 25 mg at night - sertraline 25 mg in the morning - gabapentin 200 mg three times a day PLAN: Continue current medications and schedule transfer to a rehabilitation. ESTIMATED LENGTH OF STAY: 3-4 days. TIME SPENT: 25 minutes.
[2020-11-03] MEDS: hydrOXYzine 25 MG TAB PO PRN (14:50)
[2020-11-03] MEDS: ACETAMINOPHEN TAB 650MG DOSE (2X325MG) PO PRN (14:50)
[2020-11-03] MEDS: lamoTRIgine 25MG TAB PO SCH (20:44)
[2020-11-03] MEDS: traZODone 50 MG TAB PO PRN (20:44)
[2020-11-04] MEDS: IBUPROFEN 400MG TAB PO SCH ×2 (07:37→17:33)
[2020-11-04] MEDS: SERTRALINE HCL 25 MG TABLET PO SCH (08:45)
[2020-11-04] MEDS: NEOSPORIN TOP OINT 15GM TOP SCH ×2 (08:45→21:00)
[2020-11-04] MEDS: NICOTINE 21MG/24HR 1 EA TRANSDERMAL TD SCH (08:45)
[2020-11-04] MEDS: GABAPENTIN 100 MG CAP PO SCH (08:45)
--- NOTE | 2020-11-04 13:31 | MHIPNPDOC ---
[facility] Progress Note Progress Note DATE OF SERVICE: 11/04/20 SUBJECTIVE: " I am willing to go to inpatient Rehab. I slept well. I don't have any suicidal thoughts." OBJECTIVE: She is a 25-year-old female who lives by herself. Was admitted because of suicidal thoughts. Recently she was discharged less than a week ago. She relapsed on Arlene. She used intravenous (IV) injection, had suicidal thoughts, and she was brought to the hospital. Plan is for her to go to the inpatient rehabilitation. Attending activities. MENTAL STATUS EXAMINATION: Casually dressed, cooperative. Made good eye contact. Psychomotor activity is normal. Mood is mildly depressed. Affect is constricted. Denied auditory or visual hallucinations. Denied suicidal or homicidal ideas. Memory, immediate, remote, recent, is good. DIAGNOSES: 1. Major depressive disorder. 2. Substance-induced mood disorder. 3. Polysubstance use disorder. VITAL SIGNS: Temperature 97.9, pulse 72, respiratory rate is 20, blood pressure is 124/89, pulse oximetry 97. LABORATORY DATA: CBC within normal limits. CMP within normal limits. Toxicology was positive for amphetamines and cannabis. MEDICATIONS: - lamotrigine 25 mg at night - sertraline 25 mg in the morning - gabapentin 200 mg three times a day PLAN: Continue current medications and schedule transfer to a rehabilitation. ESTIMATED LENGTH OF STAY: 3-4 days. TIME SPENT: 25 minutes. Vital Signs Vital Signs Date Time Temp Pulse Resp B/P (MAP) Pulse Ox O2 Delivery O2 Flow Rate FiO2 11/03/20 07:02 97.9 72 20 124/89 (101) 97 Room Air Current Medications Current Medications Medications (Trade) Dose Ordered Sig/Kimani Route PRN Reason Start Time Stop Time Status Last Admin Dose Admin Acetaminophen (Tylenol Tab) 650 mg Q6HP PRN PO HEADACHE or DISCOMFORT 11/01/20 11:55 11/03/20 14:50 Al Hydrox/Mg Hydrox/Simethicone (Mylanta) 30 ml Q4HP PRN PO HEARTBURN/INDIGESTION 11/01/20 11:55 11/02/20 21:48 Gabapentin (Neurontin) 200 mg TID PO 11/02/20 09:00 11/04/20 08:45 Home Med (Med Rec Complete!) ASDIRECTED XX 11/01/20 11:15 11/01/20 11:17 DC Hydroxyzine HCl (Atarax) 25 mg Q6HP PRN PO ANXIETY 11/02/20 15:00 11/03/20 14:50 Ibuprofen (Advil) 400 mg BIDWM PO 11/02/20 18:00 11/07/20 17:59 11/04/20 07:37 Lamotrigine (LaMICtal) 25 mg QHS PO 11/02/20 21:00 11/03/20 20:44 Magnesium Hydroxide (Milk Of Magnesia) 30 ml DAILYPRN PRN PO CONSTIPATION 11/01/20 11:55 Neomycin/ Polymyxin/ Bacitracin (Neosporin) to skin track marquez ... BID TOP 11/02/20 09:00 11/06/20 21:01 11/04/20 08:45 Nicotine (Nicoderm Cq 21mg) 1 patch DAILY TD 11/02/20 09:00 11/04/20 08:45 Nicotine (Nicoderm Cq 21mg) 1 patch DAILYPRN PRN TD NICOTINE WITHDRAWAL 11/01/20 20:25 11/02/20 08:15 DC 11/01/20 21:00 Sertraline HCl (Zoloft) 25 mg QAM PO 11/02/20 09:00 11/04/20 08:45 Trazodone HCl (Desyrel) 50 mg QHSP PRN PO INSOMNIA 11/01/20 11:55 11/03/20 20:44 Allergies Coded Allergies: No Known Allergies (Unverified , 08/27/20) ELROY METCALF MD Nov 04, 2020 13:31
[2020-11-04] MEDS: ACETAMINOPHEN TAB 650MG DOSE (2X325MG) PO PRN (14:25)
--- NOTE | 2020-11-04 15:11 | MHIPNPDOC ---
[facility] Progress Note Progress Note DATE OF SERVICE: 11/04/20 SUBJECTIVE: " I am willing to go to inpatient Rehab. I slept well. I don't have any suicidal thoughts." OBJECTIVE: She is a 25-year-old female who lives by herself. Was admitted because of suicidal thoughts. Recently she was discharged less than a week ago. She relapsed on Arleen. She used intravenous (IV) injection, had suicidal thoughts, and she was brought to the hospital. Plan is for her to go to the inpatient rehabilitation. Attending activities. MENTAL STATUS EXAMINATION: Casually dressed, cooperative. Made good eye contact. Psychomotor activity is normal. Mood is mildly depressed. Affect is constricted. Denied auditory or visual hallucinations. Denied suicidal or homicidal ideas. Memory, immediate, remote, recent, is good. DIAGNOSES: 1Revised Bipolar 1 disorder 2. Substance-induced mood disorder. 3. Polysubstance use disorder. VITAL SIGNS: Temperature 97.9, pulse 72, respiratory rate is 20, blood pressure is 124/89, pulse oximetry 97. LABORATORY DATA: CBC within normal limits. CMP within normal limits. Toxicology was positive for amphetamines and cannabis. MEDICATIONS: Increased to - lamotrigine 25 mg bid - sertraline 50 mg in the morning - gabapentin 300 mg three times a day PLAN: Continue current medications and schedule transfer to a rehabilitation. ESTIMATED LENGTH OF STAY: 3-4 days. TIME SPENT: 25 minutes. Vital Signs Vital Signs Date Time Temp Pulse Resp B/P (MAP) Pulse Ox O2 Delivery O2 Flow Rate FiO2 11/03/20 07:02 97.9 72 20 124/89 (101) 97 Room Air Current Medications Current Medications Medications (Trade) Dose Ordered Sig/Kimani Route PRN Reason Start Time Stop Time Status Last Admin Dose Admin Acetaminophen (Tylenol Tab) 650 mg Q6HP PRN PO HEADACHE or DISCOMFORT 11/01/20 11:55 11/04/20 14:25 Al Hydrox/Mg Hydrox/Simethicone (Mylanta) 30 ml Q4HP PRN PO HEARTBURN/INDIGESTION 11/01/20 11:55 11/02/20 21:48 Gabapentin (Neurontin) 200 mg TID PO 11/02/20 09:00 11/04/20 15:01 DC 11/04/20 08:45 Gabapentin (Neurontin) 300 mg TID PO 11/04/20 16:00 UNV Home Med (Med Rec Complete!) ASDIRECTED XX 11/01/20 11:15 11/01/20 11:17 DC Hydroxyzine HCl (Atarax) 25 mg Q6HP PRN PO ANXIETY 11/02/20 15:00 11/03/20 14:50 Ibuprofen (Advil) 400 mg BIDWM PO 11/02/20 18:00 11/07/20 17:59 11/04/20 07:37 Lamotrigine (LaMICtal) 25 mg BID PO 11/04/20 21:00 UNV Lamotrigine (LaMICtal) 25 mg QHS PO 11/02/20 21:00 11/04/20 15:01 DC 11/03/20 20:44 Magnesium Hydroxide (Milk Of Magnesia) 30 ml DAILYPRN PRN PO CONSTIPATION 11/01/20 11:55 Neomycin/ Polymyxin/ Bacitracin (Neosporin) to skin track marquez ... BID TOP 11/02/20 09:00 11/06/20 21:01 11/04/20 08:45 Nicotine (Nicoderm Cq 21mg) 1 patch DAILY TD 11/02/20 09:00 11/04/20 08:45 Nicotine (Nicoderm Cq 21mg) 1 patch DAILYPRN PRN TD NICOTINE WITHDRAWAL 11/01/20 20:25 11/02/20 08:15 DC 11/01/20 21:00 Sertraline HCl (Zoloft) 25 mg QAM PO 11/02/20 09:00 11/04/20 15:01 DC 11/04/20 08:45 Sertraline HCl (Zoloft) 50 mg QAM PO 11/05/20 09:00 UNV Trazodone HCl (Desyrel) 50 mg QHSP PRN PO INSOMNIA 11/01/20 11:55 11/03/20 20:44 Allergies Coded Allergies: No Known Allergies (Unverified , 08/27/20) ERLOY METCALF MD Nov 04, 2020 15:11
[2020-11-04] MEDS: GABAPENTIN 300 MG CAP PO SCH ×2 (15:21→20:14)
[2020-11-04 16:19] VITALS: BP 144/88
[2020-11-04] MEDS: traZODone 50 MG TAB PO PRN (20:14)
[2020-11-04] MEDS: lamoTRIgine 25MG TAB PO SCH (20:15)
[2020-11-05 06:30] VITALS: BP 136/77
[2020-11-05] MEDS: lamoTRIgine 25MG TAB PO SCH ×2 (08:20→20:12)
[2020-11-05] MEDS: GABAPENTIN 300 MG CAP PO SCH ×3 (08:20→20:12)
[2020-11-05] MEDS: IBUPROFEN 400MG TAB PO SCH ×2 (08:21→17:42)
[2020-11-05] MEDS: NEOSPORIN TOP OINT 15GM TOP SCH ×2 (08:21→20:40)
[2020-11-05] MEDS: NICOTINE 21MG/24HR 1 EA TRANSDERMAL TD SCH (08:21)
[2020-11-05] MEDS ORDERED: SERTRALINE HCL 25 MG TABLET PO SCH (09:00)
[2020-11-05] MEDS: ACETAMINOPHEN TAB 650MG DOSE (2X325MG) PO PRN (15:22)
[2020-11-05 16:10] VITALS: BP 121/83
[2020-11-05] MEDS: traZODone 50 MG TAB PO PRN (20:12)
[2020-11-06 06:25] VITALS: BP 122/68
[2020-11-06] MEDS: NICOTINE 21MG/24HR 1 EA TRANSDERMAL TD SCH (08:37)
[2020-11-06] MEDS: IBUPROFEN 400MG TAB PO SCH ×2 (08:38→17:16)
[2020-11-06] MEDS: GABAPENTIN 300 MG CAP PO SCH ×3 (08:38→20:46)
[2020-11-06] MEDS: lamoTRIgine 25MG TAB PO SCH ×2 (08:38→20:46)
[2020-11-06] MEDS: SERTRALINE HCL 50 MG TAB PO SCH (08:38)
[2020-11-06] MEDS: NEOSPORIN TOP OINT 15GM TOP SCH ×2 (08:38→20:47)
[2020-11-06 16:25] VITALS: BP 117/77
[2020-11-06] MEDS: hydrOXYzine 25 MG TAB PO PRN (16:32)
--- NOTE | 2020-11-06 17:59 | MHIPN ---
[facility] PROGRESS NOTE DATE: 11/05/2020 VITAL SIGNS: Blood pressure 121/83, pulse 81, temperature 97.9. CHIEF COMPLAINT: Feels better. SUBJECTIVE: She is seen via video, she is aware of this, agrees to it. Says feels better, and plans to go to rehabilitation the middle of next week, is looking forward to it, says has not been to rehabilitation before. Says does not do well when she uses, and that moods are much better when she does not. MENTAL STATUS EXAMINATION: Neat, cooperative, no agitation, coherent. Affect is restricted but reactive. No evidence of any thoughts of harming herself or anyone else at present, says that tends to fluctuate, depending on use, no homicidal ideas or intents, no evidence of any psychosis. Cognition grossly intact. Judgment and insight questionable, but possibly improved. ASSESSMENT: Bipolar disorder by history. Amphetamine use disorder. PLAN: Continue current care and observations. Encourage participation in activities in the unit.
--- NOTE | 2020-11-06 18:12 | MHIPN ---
[facility] PROGRESS NOTE DATE: 11/06/2020 This is a video assessment. Says is feeling better. SUBJECTIVE: Seen for followup, this is by video. She says she has been feeling better, and that she just attended a group that went well. Did not have much sleep last night, says had odd dreams. No cravings, except when one of the other people in group had been talking about drug use, but she feels she has handled the thoughts quite well. Is planning to go to [facility]. MENTAL STATUS EXAMINATION: Neat, cooperative, no agitation, coherent, affect is broader than it was yesterday, appears more relaxed. No evidence of any thoughts of harming herself or anyone else, nor of any psychosis. Cognition grossly intact. Judgment and insight are improved overall. ASSESSMENT: Bipolar disorder. Amphetamine use disorder. PLAN: Continue current care and observations. Further recommendations will be made depending on the clinical picture. She will be seeing the assigned clinician tomorrow.
[2020-11-06] MEDS: traZODone 50 MG TAB PO PRN (20:46)
[2020-11-07 07:04] VITALS: BP 113/54
[2020-11-07] MEDS: IBUPROFEN 400MG TAB PO SCH (08:00)
[2020-11-07] MEDS: GABAPENTIN 300 MG CAP PO SCH ×3 (09:25→20:10)
[2020-11-07] MEDS: lamoTRIgine 25MG TAB PO SCH ×2 (09:25→20:10)
[2020-11-07] MEDS: SERTRALINE HCL 50 MG TAB PO SCH (09:25)
[2020-11-07] MEDS: NICOTINE 21MG/24HR 1 EA TRANSDERMAL TD SCH (09:25)
--- NOTE | 2020-11-07 16:25 | MHIPN ---
[facility] PROGRESS NOTE DATE: 11/07/2020 VITAL SIGNS: Blood pressure 113/54, pulse is 65, temperature 97.6. CHIEF COMPLAINT: Feels somewhat anxious. SUBJECTIVE: She is seen for follow-up. She is seen in the presence of staff. She says she has been somewhat anxious, is nervous about leaving in a couple of days, for rehab. She is not quite sure why, but thinks it is because it is going to be a new place, a new process. Says she generally slept well. MENTAL STATUS EXAM: Neat, cooperative, no agitation. No psychomotor retardation, she is coherent. Appears mildly anxious. No evidence of any thoughts of harming herself or anyone else, nor of any psychosis. Cognition is grossly intact. Judgment and insight improved overall. ASSESSMENT: Bipolar disorder. Amphetamine use disorder. Given the current state, the anxiety, as well as potential for mood frustration, the Lamictal is increased to a total of 75 mg daily in divided doses (25 mg in the morning, 50 mg in the evening). The Zoloft is to remain at the current dose, and it is preferable not to increase it, as it may worsen mood instability, this was discussed with the patient. We will continue with current observations as well, encourage participation and activities in the unit.
[2020-11-07] MEDS: hydrOXYzine 25 MG TAB PO PRN (16:40)
[2020-11-07 18:00] VITALS: BP 112/64
[2020-11-07] MEDS: traZODone 50 MG TAB PO PRN (20:10)
[2020-11-08 06:46] VITALS: BP 111/70
[2020-11-08] MEDS: lamoTRIgine 25MG TAB PO SCH ×2 (08:14→20:14)
[2020-11-08] MEDS: GABAPENTIN 300 MG CAP PO SCH ×3 (08:15→20:14)
[2020-11-08] MEDS: SERTRALINE HCL 50 MG TAB PO SCH (08:15)
[2020-11-08] MEDS: NICOTINE 21MG/24HR 1 EA TRANSDERMAL TD SCH (08:15)
[2020-11-08 18:00] VITALS: BP 134/74
[2020-11-08] MEDS: traZODone 50 MG TAB PO PRN (20:14)
--- NOTE | 2020-11-08 22:51 | MHDS ---
DISCHARGE SUMMARY DATE OF ADMISSION: 11/01/2020 DATE OF DISCHARGE: 11/09/2020 DISCHARGE DIAGNOSES: 1. Bipolar disorder. 2. Consider substance abuse mood disorder. 3. Polysubstance use disorder. MENTAL STATUS EXAMINATION AT THE TIME OF DISCHARGE: This is being assessed today, November 08. She is seen in the presence of staff. She is neat. She is cooperative. There is no agitation. No psychomotor retardation. She is coherent. Affect is reactive, broad. There is no evidence of any thoughts of harming herself or anyone else, no evidence of any psychosis. Cognition is grossly intact. Judgment good. Insight improved. HISTORY OF PRESENT ILLNESS: She is [id number]. She was readmitted to the inpatient psychiatry unit at [facility], about a week after her previous discharge, had relapsed on "Arlene," which may well be amphetamines and had used them intravenously, had suicidal thoughts, called the police and was brought to the hospital. She has had numerous hospitalizations and history is significant for substance abuse. She has been depressed, felt hopeless. Child protective services have been involved as well regarding her children. She saw Dr. Nina upon admission, please refer to his admission summary for details of the circumstances of the admission, background history, and mental status exam at the time of hospitalization. HOSPITAL COURSE: She was admitted to the inpatient psychiatry unit, engaged in treatment, was placed on medications, these included: Lamictal 75 mg daily in divided doses (25 mg in the morning and 50 mg at night), Sertraline 50 mg in the morning, Gabapentin 300 mg three times a day, Hydroxyzine 25 mg every 6 hours as needed for anxiety, which he used with good effect, and was also on Nicotine Patch, Trazodone 50 mg at night as needed for insomnia. She engaged in treatment, was monitored for any withdrawal like symptoms, and moods, has had anxieties including anticipatory anxiety, particularly when had arranged for rehab at [facility], which is where she is going to go tomorrow, November 09, 2020. I have seen her over the last few days, since I have been head of loss prevention as well, and assigned to her care, moves have been more even keel. She has been engaging well with others and essentially has been doing well, though has had the anxiety and anticipation. During her stay here, she has also been seen by the hospitalist, no major concerns except for left arm pain with her fluctuate mass, no signs of cellulitis. There have been some skin tracks noted. She has been seen to be motivated for treatment including substance abuse treatment, plans to go for rehab tomorrow, November 09, and afterwards is planning to go to a longterm house locally in and also to follow-up with psychiatric care at , where she suggests she is already being seen. MENTAL STATUS EXAMINATION TODAY: Please see above. DISCHARGE DIAGNOSES: Please see above. MEDICATIONS ON DISCHARGE: 1. Lamotrigine 25 mg in the morning. 2. Lamotrigine 50 mg at night. 3. Sertraline (Zoloft) 50 mg in the morning. 4. Gabapentin 300 mg three times a day. 5. Hydroxyzine 25 mg every 6 hours as needed for anxiety. 6. Trazodone 50 mg at night as needed for insomnia. It should be noted, I was not able to "transfer" these medicines onto the discharge summary when done electronically, possibly for technical reasons, but I would suggest that she continue with these medicines when she is at [facility] until she is assessed there. She will be leaving for [facility] tomorrow. The assessment took 20 minutes.
[2020-11-09 07:17] VITALS: BP 133/65
[2020-11-09] MEDS: NICOTINE 21MG/24HR 1 EA TRANSDERMAL TD SCH (08:03)
[2020-11-09] MEDS: SERTRALINE HCL 50 MG TAB PO SCH (08:05)
[2020-11-09] MEDS: GABAPENTIN 300 MG CAP PO SCH (08:05)
[2020-11-09] MEDS: lamoTRIgine 25MG TAB PO SCH (08:05)
== END 2020-11-09 08:10 | DRG 753 ==
LOC: M ED 18:35 → M ED INP 11-01 11:51 → M PSY 11-01 14:20
PROVIDERS: ADMIT Psychiatry & Neurology Psychiatry; ATTEND Psychiatry & Neurology Psychiatry
DX: F31.9 Bipolar disorder, unspecified (principal); F19.94 Other psychoactive substance use, unspecified with psychoactive substance-induced mood disorder; F17.210 Nicotine dependence, cigarettes, uncomplicated; F41.9 Anxiety disorder, unspecified; R22.32 Localized swelling, mass and lump, left upper limb; Z91.5 Personal history of self-harm; K08.89 Other specified disorders of teeth and supporting structures; F43.10 Post-traumatic stress disorder, unspecified; R45.851 Suicidal ideations; Z20.822 Contact with and (suspected) exposure to COVID-19; Z79.899 Other long term (current) drug therapy